=== PATIENT | female | born 1960 | race Caucasian/White ===

== ENCOUNTER → 2017-02-05 | Outpatient (CLI) | payer MEDICARE, BC ==
--- NOTE | 2017-02-08 07:23 | MM ---
Reason for exam: screening (asymptomatic). History: Patient is postmenopausal. Family history of breast cancer in maternal grandmother. Physical Findings: A clinical breast exam by your physician is recommended on an annual basis and results should be correlated with mammographic findings. MG 3D Screening Mammo W/Cad Bilateral CC and MLO view(s) were taken. No prior studies available for comparison. The breast tissue is almost entirely fat. There is no discrete abnormality. ASSESSMENT: Negative, BI-RAD 1 RECOMMENDATION: Routine screening mammogram of both breasts in 1 year.
== END ==
LOC: RADMAMWWP 12:22
PROVIDERS: ATTEND Family Medicine
DX: Z12.31 Encounter for screening mammogram for malignant neoplasm of breast (principal)
CPT/HCPCS: 77063; G0202

== ENCOUNTER → 2017-02-12 | Outpatient (CLI) | payer MEDICARE, BC ==
--- NOTE | 2017-02-12 11:54 | XR ---
EXAMINATION TYPE: XR chest 2V DATE OF EXAM: 02/12/2017 11:37 AM COMPARISON: 07/16/2016 HISTORY: 56-year-old female with cough TECHNIQUE: Frontal and lateral views FINDINGS: The cardiomediastinal silhouette, aorta, and pulmonary vasculature are within normal limits. Lungs an d pleural spaces are clear. IMPRESSION: No acute cardiopulmonary process.
== END ==
LOC: RADXRMAIN 11:16
PROVIDERS: ATTEND Family Medicine
DX: R05 Cough (principal); R06.2 Wheezing
CPT/HCPCS: 71020

== ENCOUNTER → 2017-03-11 | Outpatient (CLI) | payer MEDICARE, BC ==
[2017-03-11 10:38] LABS: ALT 33 U/L (9-52); AST 21 U/L (14-36); Alkaline Phosphatase 69 U/L (38-126); Anion Gap 10 mmol/L; Blood Urea Nitrogen 18 mg/dL (7-17); Calcium 9.3 mg/dL (8.4-10.2); Carbon Dioxide 27 mmol/L (22-30); Chloride 107 mmol/L (98-107); Cholesterol 103 mg/dL (<200); Glucose 151 mg/dL (74-99); HDL Cholesterol 29 mg/dL (40-60); Non-African American GFR(MDRD) >60 (>60 ml/min/1.73 sqM); Potassium 4.4 mmol/L (3.5-5.1); Sodium 144 mmol/L (137-145); Total Bilirubin 0.5 mg/dL (0.2-1.3); Total Protein 6.3 g/dL (6.3-8.2); Triglycerides 239 mg/dL (<150)
== END ==
LOC: LABWHC1 09:20
PROVIDERS: ATTEND Internal Medicine Interventional Cardiology
DX: E78.2 Mixed hyperlipidemia (principal)
CPT/HCPCS: 36415; 80053; 80061

== ENCOUNTER 2017-04-02 10:46 | Day surgery (SDC) | payer MEDICARE, BC ==
[2017-03-29 16:32] VITALS: BMI 40.1
[~2017-04-02 10:46] MED LIST: ALPRAZolam 0.25 MG TAB PO PRN; ASPIRIN 325 MG TAB PO ONE; SODIUM CHLORIDE 0.9% 1,000 ML in EMPTY BAG 1 BAG IV ONE
[2017-04-02 11:36] VITALS: TEMP 98.2
[2017-04-02 11:39] LABS: Glucose,Whole Blood 164 mg/dL (75-99)
[2017-04-02 11:55] LABS: Basophils % (A) 1 %; CH 30.2; Eosinophils # (A) 0.2 k/uL (0-0.7); Eosinophils % (A) 3 %; HCT 36.6 % (34.0-46.0); HDW 2.89; HGB 12.4 gm/dL (11.4-16.0); Luc # (Auto) 0.12; Luc % (Auto) 2; Lymphocytes # (A) 2.1 k/uL (1.0-4.8); Lymphocytes % (A) 36 %; MCH 30.1 pg (25.0-35.0); MCHC 33.9 g/dL (31.0-37.0); Mean Platelet Volume 7.6; Monocytes # (A) 0.2 k/uL (0-1.0); Monocytes % (A) 4 %; Neutrophils # (A) 3.2 k/uL (1.3-7.7); Neutrophils % (A) 55 %; RBC 4.11 m/uL (3.80-5.40); RDW 13.4 % (11.5-15.5); WBC 5.8 k/uL (3.8-10.6); WBC (Perox) 5.86
[2017-04-02] MEDS ORDERED: LIDOCAINE 2% INJ 20 MG/ML (20 ML MDV) ONE (12:07)
[2017-04-02] MEDS ORDERED: fentaNYL (PF) 50 MCG/ML 2 ML AMP ONE (12:08)
[2017-04-02] MEDS ORDERED: diphenhydrAMINE 50 MG/ML 1 ML VIAL ONE (12:08)
[2017-04-02] MEDS ORDERED: VERAPAMIL 2.5 MG/ML 2 ML AMP ONE (12:08)
[2017-04-02] MEDS ORDERED: SODIUM CHLORIDE 0.9% 1,000 ML IV ONE (12:31)
[2017-04-02] MEDS ORDERED: diphenhydrAMINE 50 MG/ML 1 ML VIAL IVP ONE (12:31)
[2017-04-02] MEDS ORDERED: fentaNYL (PF) 50 MCG/ML 2 ML AMP IV ONE (12:31)
[2017-04-02] MEDS ORDERED: HEPARIN SODIUM 1,000 UNIT/ML VIAL ONE (12:32)
[2017-04-02] MEDS ORDERED: LIDOCAINE 2% INJ 20 MG/ML SQ ONE (12:32)
[2017-04-02] MEDS ORDERED: VERAPAMIL SYRINGE (5 MG/10 ML) INTRAARTER ONE (12:36)
[2017-04-02] MEDS ORDERED: IOHEXOL 350 MG/ML 100 ML BOTTLE INJ ONE (13:13)
[2017-04-02] MEDS ORDERED: RX INFO: IV CONTRAST WAS GIVEN 1 EACH MISC MISCELLANE PRN (13:22)
[2017-04-02] MEDS ORDERED: NITROGLYCERIN SL TABS 0.4 MG TAB SUBLINGUAL PRN (13:23)
[2017-04-02] MEDS ORDERED: SODIUM CHLORIDE 0.9% 1,000 ML IV SCH (13:30)
[2017-04-02] MEDS ORDERED: ACETAMINOPHEN WITH CODEINE PO SCH (13:30)
[2017-04-02] MEDS ORDERED: Acetaminophen-Codeine 300-30mg TAB PO STA (15:04)
[2017-04-02] MEDS ORDERED: amLODIPine 5 MG TAB PO STA (15:04)
[2017-04-02 18:39] LABS: Glucose,Whole Blood 140 mg/dL (75-99)
[2017-04-02 18:55] VITALS: PULSE 84; RESP 20
[2017-04-02 19:32] VITALS: BP 138/67
[2017-04-02] MEDS ORDERED: LISINOPRIL-HCTZ 20-25 MG 1 EACH TAB PO SCH (21:00)
[2017-04-02] MEDS ORDERED: INSULIN GLARGINE 100 UNIT/ML 10 ML VIAL SQ SCH (21:00)
[2017-04-02] MEDS ORDERED: ATORVASTATIN 40 MG TAB PO SCH (21:00)
--- NOTE | 2017-04-03 06:51 | CC ---
DATE OF SERVICE: Mrs. Xie 56-year-old female with known history of coronary artery disease, status post stenting done on the LAD, who presented with symptoms of chest discomfort and dyspnea on exertion reminding her of the symptoms she had in the past. In view of that, recommendation was made regarding cardiac catheterization. The procedure as well as the risks and complications were discussed with the patient who is in full understanding and agreement. PROCEDURE: Patient was brought to the [facility] in fasting semisedated state after receiving fentanyl and Benadryl and achieving moderate conscious sedated state. Using Xylocaine anesthesia and Seldinger technique, a 6 Pashto sheath was introduced in left radial artery. Selective right and left coronary angiography was performed using a 4 Bend 5 Pashto right and left Shu catheter, multiple views of the coronary artery including hemiaxial views were obtained. Following that, a 5 Pashto tight pigtail catheter was introduced into the left ventricle and a 30 degree [place] view of the left ventricle was obtained. Following that, catheter and sheaths were removed. Hemostasis was obtained with deployment of TR band. There were no immediate complications. Patient is returned to her room in stable condition. Of note, the patient received 5000 units of intravenous heparin as well as intra-arterial verapamil. The duration of the procedure was 33 minutes. FINDINGS: LEFT MAIN: This is a short-sized vessel bifurcating into the left circumflex and left anterior descending artery. The left main coronary artery is without any obstructive coronary artery disease. LEFT ANTERIOR DESCENDING ARTERY: This is a large-size vessel reaching toward the apex segment, has stented segment in the mid artery of a long distance. The left anterior descending artery and the stented segment has about a 20% to 30% restenosis without any evidence of high-grade stenosis. The rest of the vessel has no high-grade stenosis. LEFT CIRCUMFLEX: This is a nondominant vessel, large in caliber, giving rise to 2 large obtuse marginal branches. The first one is very proximal left circumflex as well as its branches has no evidence of obstructive" coronary artery disease. RIGHT CORONARY ARTERY: This is a large dominant vessel, bifurcating distally into PDA and posterolateral segment and branches. The mid right coronary artery has a 20% to 30% plaque. The rest of the vessel has no high-grade stenosis. LEFT VENTRICULOGRAM: . The left ventriculogram was performed in 30-degree ASHFORD view and revealed normal left ventricle size and systolic function. Ejection fraction 60%. There was no significant mitral regurgitation. HEMODYNAMICS: There was no gradient across the aortic valve. The left ventricular end-diastolic pressure was 14 mmHg. CONCLUSION: 1. Mild in-stent restenosis involving the stented left anterior descending. 2. Mild disease in the mid right coronary artery. 3. Normal left ventricular size and systolic function. RECOMMENDATIONS: In view of findings and anatomy, I recommend continue medical therapy with a aggressive risk modifications being initiated. Those findings and recommendations were discussed with the patient and her family and in full understanding and agreement.
--- NOTE | 2017-04-03 06:53 | LTR ---
April 02, 2017 RE: Shelby Xie Dear Dr. Donnelly: I had the pleasure of performing cardiac catheterization on Mrs. Xie at [facility] on the march and a full copy of procedure note will be forwarded to you. In brief, she was found to have mild in-stent stenosis with mild disease in the right coronary artery and no significant progression of disease. Based on those findings, I recommend to continue on medical therapy with the aggressive risk modifications being initiated. Thank you again for allowing me to participate in her care. Please feel free to call for any questions. Sincerely, PJ BENEDICT MD
[2017-04-03] MEDS ORDERED: ISOSORBIDE MONONITRATE ER 15 MG TAB PO SCH (09:00)
[2017-04-03] MEDS ORDERED: CLOPIDOGREL 75 MG TAB PO SCH (09:00)
[2017-04-03] MEDS ORDERED: ASPIRIN 325 MG TAB PO SCH (09:00)
[2017-04-03] MEDS ORDERED: ATENOLOL 50 MG TAB PO SCH (09:00)
[2017-04-03] MEDS ORDERED: amLODIPine 5 MG TAB PO SCH (12:00)
== END 2017-04-02 19:30 | disposition home or self-care (01) ==
LOC: CATHCVL 10:46
PROVIDERS: ATTEND Internal Medicine Interventional Cardiology
DX: T82.855A Stenosis of coronary artery stent, initial encounter (principal); I25.110 Atherosclerotic heart disease of native coronary artery with unstable angina pectoris; E78.2 Mixed hyperlipidemia; I10 Essential (primary) hypertension; R00.2 Palpitations; E11.9 Type 2 diabetes mellitus without complications; E78.00 Pure hypercholesterolemia, unspecified; Z98.84 Bariatric surgery status; E66.9 Obesity, unspecified; Z68.41 Body mass index [BMI] 40.0-44.9, adult; Z79.84 Long term (current) use of oral hypoglycemic drugs; Z79.02 Long term (current) use of antithrombotics/antiplatelets; Z79.82 Long term (current) use of aspirin; Z79.4 Long term (current) use of insulin; Z79.899 Other long term (current) drug therapy; Z88.1 Allergy status to other antibiotic agents; Z88.0 Allergy status to penicillin; Z91.09 Other allergy status, other than to drugs and biological substances
CPT/HCPCS: 93458; 85025; 99152; 99153; C1894; C1769 ×2; J2001; J1200; Q9967; J3010; J1644

== ENCOUNTER → 2017-07-30 | Outpatient (CLI) | payer MEDICARE, BC ==
[2017-07-30 10:47] LABS: ALT 30 U/L (9-52); AST 17 U/L (14-36); Alkaline Phosphatase 69 U/L (38-126); Anion Gap 11 mmol/L; Blood Urea Nitrogen 16 mg/dL (7-17); Calcium 9.5 mg/dL (8.4-10.2); Carbon Dioxide 25 mmol/L (22-30); Chloride 107 mmol/L (98-107); Cholesterol 149 mg/dL (<200); Glucose 151 mg/dL (74-99); HDL Cholesterol 41 mg/dL (40-60); Non-African American GFR(MDRD) >60 (>60 ml/min/1.73 sqM); Potassium 4.5 mmol/L (3.5-5.1); Sodium 143 mmol/L (137-145); Total Bilirubin 0.4 mg/dL (0.2-1.3); Total Protein 6.3 g/dL (6.3-8.2)
== END | disposition home or self-care (01) ==
LOC: LABWHC1 09:43
PROVIDERS: ATTEND Internal Medicine Interventional Cardiology
DX: E78.2 Mixed hyperlipidemia (principal)
CPT/HCPCS: 36415; 80053; 80061

== ENCOUNTER → 2018-02-12 | Outpatient (CLI) | payer MEDICARE, BC ==
[2018-02-12 10:51] LABS: ALT 30 U/L (9-52); AST 20 U/L (14-36); Cholesterol 126 mg/dL (<200); HDL Cholesterol 38 mg/dL (40-60); LDL Cholesterol,Calculated 54 mg/dL (0-99); Triglycerides 168 mg/dL (<150)
== END | disposition home or self-care (01) ==
LOC: LABWHC1 09:22
PROVIDERS: ATTEND Internal Medicine Interventional Cardiology
DX: E78.2 Mixed hyperlipidemia (principal)
CPT/HCPCS: 36415; 80061; 84450; 84460

== ENCOUNTER → 2018-09-23 | Outpatient (CLI) | payer MEDICARE, BC ==
[2018-09-23 16:18] LABS: Albumin 4.2 g/dL (3.80-4.90); Albumin/Globulin Ratio 2.8 (1.20-2.10); Anion Gap 7.9 mmol/L (4.00-12.00); Calcium 9.6 mg/dL (8.7-10.3); Carbon Dioxide 29.1 mmol/L (21.6-31.8); Globulin 1.5 g/dL (2.1-3.7); LDL Cholesterol,Calculated 61.2 mg/dL (0.0-131.0); Potassium 4.5 mmol/L (3.5-5.5); Total Bilirubin 0.4 mg/dL (0.3-1.2); Total Protein 5.7 g/dL (6.2-8.2); VLDL Calculation 33.8 mg/dL (5.00-40.00)
== END | disposition home or self-care (01) ==
LOC: LABWHC1 07:54
PROVIDERS: ATTEND Internal Medicine Interventional Cardiology
DX: E78.2 Mixed hyperlipidemia (principal)
CPT/HCPCS: 36415; 80053; 80061

== ENCOUNTER → 2019-01-07 | Outpatient (CLI) | payer MEDICARE, BC ==
[2019-01-07 16:26] VITALS: BP 122/72; PULSE 65; TEMP 97.8; BMI 30.1
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
== END | disposition home or self-care (01) ==
LOC: BARWHC3 15:17
PROVIDERS: ATTEND Surgery Plastic and Reconstructive Surgery
DX: M79.3 Panniculitis, unspecified (principal); L98.498 Non-pressure chronic ulcer of skin of other sites with other specified severity; Z98.84 Bariatric surgery status; Z95.5 Presence of coronary angioplasty implant and graft; Z98.890 Other specified postprocedural states; Z96.612 Presence of left artificial shoulder joint; Z87.891 Personal history of nicotine dependence
CPT/HCPCS: 99211

== ENCOUNTER → 2019-02-02 | Outpatient (CLI) | payer MEDICARE, BC ==
[2019-02-02 10:13] LABS: Basophils % (A) 0 %; Eosinophils # (A) 0.2 k/uL (0-0.7); Eosinophils % (A) 3 %; HCT 35.8 % (34.0-46.0); HGB 11.7 gm/dL (11.4-16.0); Lymphocytes # (A) 2.8 k/uL (1.0-4.8); Lymphocytes % (A) 41 %; MCH 29.7 pg (25.0-35.0); MCHC 32.6 g/dL (31.0-37.0); MCV 91.2 fL (80.0-100.0); Mean Platelet Volume 7.7; Monocytes # (A) 0.3 k/uL (0-1.0); Monocytes % (A) 4 %; Neutrophils # (A) 3.5 k/uL (1.3-7.7); Neutrophils % (A) 51 %; Platelet Count 274 k/uL (150-450); RBC 3.92 m/uL (3.80-5.40); RDW 12.8 % (11.5-15.5); WBC 6.9 k/uL (3.8-10.6)
[2019-02-02 10:34] LABS: Albumin 4.2 g/dL (3.5-5.0); Potassium 4.7 mmol/L (3.5-5.1); Total Bilirubin 0.5 mg/dL (0.2-1.3); Total Protein 6.5 g/dL (6.3-8.2)
== END | disposition home or self-care (01) ==
LOC: LABPAT 09:03
PROVIDERS: ATTEND Surgery Plastic and Reconstructive Surgery
DX: Z01.818 Encounter for other preprocedural examination (principal); Z01.812 Encounter for preprocedural laboratory examination
CPT/HCPCS: 80053; 85025; 93005

== ENCOUNTER 2019-03-02 11:11 | Inpatient (IN) | payer MEDICARE, BC ==
--- NOTE | 2019-02-26 13:01 | P.PN ---
Progress Note - Text Progress Note Date: 02/26/19 I spoke to patient on the phone about risks with panniculectomy including large volume blood loss with current antiplatelet therapy. Patient had already obtained cardiac clearance and discontinued her Aspirin since 02/22/2019. Perioperative increased risks for myocardial infarction also described as she chose to discontinue her Aspirin. She wished to accept those risks and proceed with panniculectomy.
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
[~2019-03-02 11:11] MED LIST changes: -ALPRAZolam 0.25 MG TAB PO PRN; -ASPIRIN 325 MG TAB PO ONE; +DEXAMETHASONE SOD PHOSPHATE 10 MG/ML 1 ML VIAL IV ONE; +HEPARIN SODIUM,PORCINE 5,000 UNIT/ML 1 ML VIAL SQ ONE; +HYDROmorphone 0.5 MG/0.5 ML SYRINGE IVP PRN; +MIDAZOLAM 2 MG/2 ML VIAL IV PRN; +ONDANSETRON 4 MG/2 ML VIAL IVP ONE; +SCOPOLAMINE 1.5MG/72HR PATCH TRANSDERM ONE; -SODIUM CHLORIDE 0.9% 1,000 ML in EMPTY BAG 1 BAG IV ONE; +ceFAZolin IN SWFI 2 GM/20 ML SYRINGE IVP ONE
[2019-03-02 12:50] LABS: Glucose,Whole Blood 146 mg/dL (75-99)
[2019-03-02] MEDS: LACTATED RINGERS 1,000 ML IV SCH (12:54)
[2019-03-02] MEDS ORDERED: LIDOCAINE 1% 20 ML VIAL (10MG/ML) FOR IV START INTRADERMA ONE (12:54)
[2019-03-02] MEDS ORDERED: PROPOFOL 10 MG/ML 20 ML VIAL IV ONE (13:40)
[2019-03-02] MEDS ORDERED: ROCURONIUM BROMIDE 10 MG/ML 10 ML VIAL IV ONE (13:40)
[2019-03-02] MEDS ORDERED: fentaNYL (PF) 50 MCG/ML 2 ML AMP ONE (13:40)
[2019-03-02] MEDS ORDERED: LIDOCAINE 1% INJ 10MG/ML (20 ML MDV) ONE (13:40)
[2019-03-02] MEDS ORDERED: GLYCOPYRROLATE 0.2 MG/ML 2 ML VIAL ONE (13:40)
[2019-03-02] MEDS ORDERED: NEOSTIGMINE 1 MG/ML 10 ML VIAL ONE (13:40)
[2019-03-02] MEDS ORDERED: MIDAZOLAM 2 MG/2 ML VIAL ONE (13:40)
[2019-03-02] MEDS ORDERED: LACTATED RINGERS 1,000 ML IV ONE ×3 (15:00→18:58)
[2019-03-02] MEDS ORDERED: NALOXONE 0.4 MG/ML 1 ML VIAL IV PRN (18:10)
[2019-03-02] MEDS ORDERED: SIMETHICONE 40 MG/0.6 ML DROPS 2,000 MG/30 ML BOTTLE PO PRN (18:10)
--- NOTE | 2019-03-02 18:17 | P.OP ---
Date of Procedure: 03/02/19 Description of Procedure: SURGEON: ASIF LATHAM MD PREOPERATIVE DIAGNOSES: 1. Morbid obesity due to excess caloreis, highest BMI 46.9 to 29.5 2. Panniculitis. 3. Coronary artery disease 4. Ischemic cardiomyopathy 5. History of angina 6. Diabetes type 2, insulin dependent 7. Hyperlipidemia 8. Osteoarthritis of the lower back 9. Osteoarthritis of the knees 10. Osteoarthritis of the hips 11. Myocardial infarction 12. Hypertensive heart disease 13. Recurrent incarcerated incisional hernia unrelated to previous bariatric procedures 14. Massive weight loss, 117 pounds POSTOPERATIVE DIAGNOSES: 1. Morbid obesity due to excess caloreis, highest BMI 46.9 to 29.5 2. Panniculitis. 3. Coronary artery disease 4. Ischemic cardiomyopathy 5. History of angina 6. Diabetes type 2, insulin dependent 7. Hyperlipidemia 8. Osteoarthritis of the lower back 9. Osteoarthritis of the knees 10. Osteoarthritis of the hips 11. Myocardial infarction 12. Hypertensive heart disease 13. Recurrent incarcerated incisional hernia unrelated to previous bariatric proceduresm 9 x 7 cm 14. Massive weight loss, 117 pounds OPERATION: 1. Panniculectomy supraumbilical, 14.2 pounds. 2. Repair of recurrent incarcerated incisional 9 x 7 cm without mesh 3. Abdominal wall reconstruction with myocutaneous bilateral flap advancement. 4. Excision and removal of foreign body from the abdominal wall from previous mesh repair ANESTHESIA: General ESTIMATED BLOOD LOSS: 300 mL SPECIMENS REMOVED: Pannus 14.2 pounds. COMPLICATIONS: None. CONDITION: Stable. DRAINS: Two #19 Nic drains below abdominal flap extending through the pubis. OPERATIVE FINDINGS: 1. Recurrent lower midline incisional hernia with incarceration, 9 x 7 cm with excision of foreign body 2. Pannus of 14.2 pounds excised 3. Advancement flap of 15-cm x 26 cm length obtained. INDICATIONS: The patient is a 58-year-old female with a history of massive weight loss over 117 pounds over 1.5 years ago. Despite medical therapy with prescription powders such as Nystatin over 1 year, she has developed severe medical refractory panniculitis including chronic lower back pain. Her body mass index has been reduced from approximately 46.9 down to 29.5. She reports medically refractory panniculitis. Given her clinical symptoms, including massive weight loss, she elected for surgical intervention with a panniculectomy. Benefits and risks of the procedure including bleeding, infection, risk of flap failure were described at length. In formed consent was obtained. DESCRIPTION: In the preanesthesia care unit the patient was marked with an indelible marker. She had also been given heparin subcutaneously. The patient was brought into the operating room and laid in supine position. After general induction, a Tejada catheter was placed. The abdomen was then prepped and draped in standard sterile fashion using ChloraPrep. The skin was prepped as far laterally to the back, inferiorly to the upper thighs and superiorly to above the bilateral breasts. A timeout protocol was confirmed with the surgical team regarding patient's na me, procedure to be performed, including preoperative medications. She had received Ancef 2 grams IV antibiotics. Once the time-out protocol was confirmed with the surgical team, the patient was re-marked with indelible marker whereby the midline of the xiphoid to the mons pubis was marked. The anterior/superior iliac spine along the bilateral hips was also marked. Approximately 8 cm above the pubis commissure a transverse incision was made for the inferior portion of the flap. Using a #10 blade, the incision was taken from the midline laterally to above the anterior/superior iliac spine, initially on the left side of the patient and then on the right side of the patient. Electro-Bovie cautery was used to control for hemostasis. The dissection was taken down to the level of the fascia. Landmarks used were the xiphoid process as well as the bilateral costal margins for the superior margin. Care was taken to avoid any creation of dog ears during the dissection. Once hemostasis was checked, a large ventral incisoinal hernia defect of 9 x 7 cm was identified. During this dissection, the umbilicus was truncated at its fascial insertion. Bilateral myocutaneous flaps were created after identfying the external obliques muscle overlapped after creating over 8+ cm overlap on the left and right side flap advancement. A myocutaneous flap of 15 x 26 cm using the rectus muscle was created. After the flaps were raised, the midline was re- marked again from the xiphoid to the pubis commissure. Fascial imbrication was proposed with for primary repair and to reinforce the bilateral myocutaneous flap advancement. Starting from the xiphoid process, the rectus muscle was overlapped in the bilateral myocutaneous flap advancement using multiple #2 Ethibonds. The ventral hernia defect was completely repaired and closed. Hemostasis was once again checked with electro-Bovie cautery and all defects were addressed. Attention was now brought to closure of the flap. Using stainless steel skin jose, the midline was once again marked of the upper flap as well as the pubic commissure. The patient was placed in a flexed position of approximately 30 degrees at the hips. The pannus was extended inferiorly to the feet. The upper flap was created once the excess skin was excised. Again care was taken to avoid any dog ears along the lateral aspect of the incisions. Once excised, the pannus weighed approximately 22.7 pounds. The upper and lower flaps were reapproximated at the midline and then laterally to the skin with skin jose. Once reapproximated, the skin was closed in layers using 0 Vicryl for the superficial fascial system followed by running 3-0 Monocryl for the deep dermis and finally 4-0 Monocryl in a running subcuticular fashion. Prior to skin closure, two round #19 Nic drains were placed underneath the flap and brought out just inferior to the incision along the pubis. Drain stitch using 2-0 nylon was placed. Once the incision was closed, bulb suction was attached. Hemostasis was checked. At the end of the procedure, the needle, sponge and instrument count was verified correct. The skin was cleansed with dilute hydrogen peroxide. Exofin tape and Optifoam dressings were placed. The patient was then transferred to a hospital bed in a beach chair position. An abdominal binder was placed and marked. The patient was taken to the postanesthesia care unit in stable condition, awake and extubated. Total time for procedure from skin to skin was 199 minutes. The intraoperative findings were discussed with her family who was pleased with the level of care.
[2019-03-02] MEDS ORDERED: NITROGLYCERIN SL TABS 0.4 MG TAB SUBLINGUAL PRN (18:18)
[2019-03-02 18:32] LABS: Glucose,Whole Blood 254 mg/dL (75-99)
[2019-03-02] MEDS ORDERED: INSULIN ASPART (NovoLOG) 100 UNIT/ML VIAL SQ ONE (18:44)
[2019-03-02] MEDS: HYDROmorphone 1 MG/ML 1 ML SYRINGE IVP PRN (20:56)
[2019-03-02] MEDS: LISINOPRIL-HCTZ 20-25 MG 1 EACH TAB PO SCH (20:56)
[2019-03-02] MEDS: METOPROLOL TARTRATE 50 MG TAB PO SCH (20:56)
[2019-03-02] MEDS: 0.9% NACL WITH KCL 20 MEQ/L 1,000 ML IV SCH (20:57)
[2019-03-02] MEDS: ATORVASTATIN 40 MG TAB PO SCH (20:57)
[2019-03-02] MEDS: ceFAZolin IN SWFI 2 GM/20 ML SYRINGE IVP SCH (20:57)
[2019-03-02 22:39] LABS: Hepatitis C IgG Antibody Non-Reactive (Non-Reactive)
[2019-03-02 23:09] VITALS: BMI 29.1
[2019-03-02 23:18] LABS: Glucose,Whole Blood 196 mg/dL (75-99)
[2019-03-02] MEDS: ONDANSETRON 4 MG/2 ML VIAL IVP SCH (23:20)
[2019-03-02] MEDS: INSULIN ASPART (NovoLOG) 100 UNIT/ML VIAL SQ SCH (23:21)
[2019-03-03] MEDS: HYDROmorphone 1 MG/ML 1 ML SYRINGE IVP PRN (02:29)
[2019-03-03] MEDS: 0.9% NACL WITH KCL 20 MEQ/L 1,000 ML IV SCH ×4 (04:25→21:46)
[2019-03-03] MEDS: ceFAZolin IN SWFI 2 GM/20 ML SYRINGE IVP SCH (04:28)
[2019-03-03 05:54] LABS: Glucose,Whole Blood 147 mg/dL (75-99)
[2019-03-03] MEDS: ONDANSETRON 4 MG/2 ML VIAL IVP SCH ×4 (06:18→23:52)
[2019-03-03] MEDS: INSULIN ASPART (NovoLOG) 100 UNIT/ML VIAL SQ SCH ×4 (06:18→21:44)
[2019-03-03] MEDS: LACTATED RINGERS 1,000 ML IV SCH (06:19)
[2019-03-03] MEDS: HYDROcodone/APAP 15 ML SOLUTION PO PRN ×3 (06:24→20:08)
[2019-03-03 07:32] VITALS: RESP 16
[2019-03-03 09:49] LABS: INR 0.9 (<1.2); Prothrombin Time 10.1 sec (9.0-12.0)
[2019-03-03 09:55] LABS: ALT 20 U/L (9-52); AST 16 U/L (14-36); Albumin 3.3 g/dL (3.5-5.0); Alkaline Phosphatase 57 U/L (38-126); Anion Gap 10 mmol/L; Blood Urea Nitrogen 16 mg/dL (7-17); Calcium 8.9 mg/dL (8.4-10.2); Carbon Dioxide 26 mmol/L (22-30); Chloride 105 mmol/L (98-107); Glucose 135 mg/dL (74-99); Phosphorus 4.3 mg/dL (2.5-4.5); Potassium 4.4 mmol/L (3.5-5.1); Sodium 141 mmol/L (137-145); Total Bilirubin 0.4 mg/dL (0.2-1.3); Total Protein 5.3 g/dL (6.3-8.2)
[2019-03-03 10:24] LABS: Basophils % (A) 0 %; Eosinophils # (A) 0.1 k/uL (0-0.7); Eosinophils % (A) 1 %; HCT 32.3 % (34.0-46.0); HGB 10.8 gm/dL (11.4-16.0); Lymphocytes # (A) 2.5 k/uL (1.0-4.8); Lymphocytes % (A) 24 %; MCH 30.5 pg (25.0-35.0); MCHC 33.5 g/dL (31.0-37.0); MCV 91.2 fL (80.0-100.0); Mean Platelet Volume 7.8; Monocytes # (A) 0.5 k/uL (0-1.0); Monocytes % (A) 5 %; Neutrophils # (A) 7.3 k/uL (1.3-7.7); Neutrophils % (A) 69 %; Platelet Count 356 k/uL (150-450); RBC 3.55 m/uL (3.80-5.40); RDW 12.6 % (11.5-15.5); WBC 10.6 k/uL (3.8-10.6)
[2019-03-03] MEDS: LISINOPRIL-HCTZ 20-25 MG 1 EACH TAB PO SCH ×2 (11:21→20:08)
[2019-03-03] MEDS: METOPROLOL TARTRATE 50 MG TAB PO SCH ×2 (11:21→20:08)
[2019-03-03] MEDS: ENOXAPARIN 40 MG/0.4 ML SYRINGE SQ SCH (11:22)
[2019-03-03] MEDS: ASPIRIN 81 MG PO SCH (11:26)
[2019-03-03] MEDS: BENZOCAINE/MENTHOL LOZENG 1 EACH LOZENGE MUCOUS MEM PRN ×2 (11:28→14:58)
[2019-03-03 11:38] LABS: Glucose,Whole Blood 150 mg/dL (75-99)
[2019-03-03] MEDS ORDERED: MULTIVITAMINS, THERA 1 EACH TAB PO SCH (12:00)
--- NOTE | 2019-03-03 12:46 | P.PN ---
Subjective Progress Note Date: 03/03/19 CHIEF COMPLAINT: Panniculitis HISTORY OF PRESENT ILLNESS: 58-year-old female who underwent panniculectomy yesterday. Patient seen and examined the bedside. Patient states her pain is tolerable. Urinary catheter was discontinued at 1000. Patient is due to void. Patient has been ambulating in the hallway. She complains of a sore throat. PHYSICAL EXAM: VITAL SIGNS: Reviewed. GENERAL: Well-developed in no acute distress. HEENT: No sclera icterus. Extraocular movements grossly intact. Moist buccal mucosa. Head is atraumatic, normocephalic. ABDOMEN: Soft. Nondistended. Nontender. Abdominal binder intact. EDUARDO drains 2 with sanguinous drainage. NEUROLOGIC: Alert and oriented. Cranial nerves II through XII grossly intact. ASSESSMENT: 1. Status post panniculectomy PLAN: 1. Patient due to void. Notify provider if patient has not urinated since 6 hours of urinary catheter be discontinued 2. Strict I's and O's 3. Pain control 4. Activity as tolerated 5. Patient encouraged to use incentive spirometer hourly 6. Cepacol lozenges ordered. Nurse practitioner note has been reviewed by physician. Signing provider agrees with the documented findings, assessment, and plan of care. Objective - Vital Signs Vital signs: Vital Signs Temp 98.6 F 03/03/19 07:00 Pulse 67 03/03/19 07:00 Resp 16 03/03/19 07:00 BP 121/74 03/03/19 07:00 Pulse Ox 96 03/03/19 07:41 Intake & Output 03/02/19 03/03/19 03/03/19 18:59 06:59 18:59 Intake Total 2975 1200 Output Total 528 400 7293 Balance 2415 415 -1010 Intake: IV 2975 Intake, IV Titration 1200 Amount 0.9% NaCl with KCl 20 Meq 1200 /l 1,000 ml @ 150 mls/hr IV .Q6H40M [facility] Rx#: [id number] Output: Drainage 60 110 Left Lower Abdomen 30 60 Right Lower Abdomen 30 50 Urine 260 725 900 Uretheral ([place]) 900 Estimated Blood Loss 300 Other: Voiding Method Indwelling Catheter - Labs CBC & Chem 7: 03/03/19 08:43 03/03/19 08:43 Labs: Abnormal Lab Results - Last 24 Hours (Table) 04/08/19 04/08/19 04/08/19 Range/Units 12:48 18:29 23:16 RBC (3.80-5.40) m/uL Hgb (11.4-16.0) gm/dL Hct (34.0-46.0) % Glucose (74-99) mg/dL POC Glucose (mg/dL) 146 H 254 H 196 H (75-99) mg/dL Total Protein (6.3-8.2) g/dL Albumin (3.5-5.0) g/dL 03/03/19 03/03/19 03/03/19 Range/Units 05:52 08:43 08:43 RBC 3.55 L (3.80-5.40) m/uL Hgb 10.8 L (11.4-16.0) gm/dL Hct 32.3 L (34.0-46.0) % Glucose 135 H (74-99) mg/dL POC Glucose (mg/dL) 147 H (75-99) mg/dL Total Protein 5.3 L (6.3-8.2) g/dL Albumin 3.3 L (3.5-5.0) g/dL 03/03/19 Range/Units 11:37 RBC (3.80-5.40) m/uL Hgb (11.4-16.0) gm/dL Hct (34.0-46.0) % Glucose (74-99) mg/dL POC Glucose (mg/dL) 150 H (75-99) mg/dL Total Protein (6.3-8.2) g/dL Albumin (3.5-5.0) g/dL Assessment and Plan (1) Panniculitis Current Visit: Yes Status: Acute Code(s): M79.3 - PANNICULITIS, UNSPECIFIED SNOMED Code(s): 64063623 (2) Obesity Current Visit: No Status: Acute Code(s): E66.9 - OBESITY, UNSPECIFIED SNOMED Code(s): 695286308
[2019-03-03 16:31] LABS: Folate, Serum 14.5 ng/mL; Iron Saturation 7.19 (12.00-45.00)
[2019-03-03 16:57] LABS: Glucose,Whole Blood 147 mg/dL (75-99)
[2019-03-03 17:12] LABS: Parathyroid Hormone Intact 65.5 pg/mL (14.0-72.0)
[2019-03-03 19:09] LABS: Hemoglobin A1C 6.5 % (4.0-6.0)
[2019-03-03] MEDS: ATORVASTATIN 40 MG TAB PO SCH (20:08)
[2019-03-03] MEDS ORDERED: LEVOFLOXACIN 500MG-D5W PMX 500 MG in DEXTROSE/WATER 1 100ML.BAG IVPB SCH (21:00)
[2019-03-03 21:35] LABS: Glucose,Whole Blood 189 mg/dL (75-99)
[2019-03-03] MEDS: DOCUSATE 100 MG CAP PO SCH (21:44)
[2019-03-04] MEDS: HYDROcodone/APAP 7.5-325MG 1 EACH TAB PO PRN ×2 (01:44→09:35)
[2019-03-04] MEDS: ONDANSETRON 4 MG/2 ML VIAL IVP SCH (06:01)
[2019-03-04] MEDS: LACTATED RINGERS 1,000 ML IV SCH (06:02)
[2019-03-04 06:55] LABS: Glucose,Whole Blood 123 mg/dL (75-99)
[2019-03-04] MEDS ORDERED: BISACODYL 5 MG TABLET.DR PO PRN (08:00)
--- NOTE | 2019-03-04 08:31 | P.PN ---
Progress Note - Text Progress Note Date: 03/04/19 Patient doing well. Reports pre-existing sinusitis not disclosed to the surgical team. Started on Levaquin for pre-existing sinusitis. Anticipated discharge tomorrow.
[2019-03-04 09:11] VITALS: BP 118/78; PULSE 76; TEMP 98
[2019-03-04] MEDS: ASPIRIN 81 MG PO SCH (09:31)
[2019-03-04] MEDS: ENOXAPARIN 40 MG/0.4 ML SYRINGE SQ SCH (09:31)
[2019-03-04] MEDS: LISINOPRIL-HCTZ 20-25 MG 1 EACH TAB PO SCH (09:31)
[2019-03-04] MEDS: METOPROLOL TARTRATE 50 MG TAB PO SCH (09:31)
[2019-03-04] MEDS: DOCUSATE 100 MG CAP PO SCH (09:31)
[2019-03-04] MEDS: INSULIN ASPART (NovoLOG) 100 UNIT/ML VIAL SQ SCH (09:37)
[2019-03-04 11:59] LABS: Glucose,Whole Blood 167 mg/dL (75-99)
--- NOTE | 2019-03-04 12:03 | P.DS ---
Providers Date of admission: 03/02/19 18:35 Expected date of discharge: 03/04/19 Attending physician: Anisha Ruiz Primary care physician: Manish Donnelly - Discharge Diagnosis(es) (1) Recurrent incisional hernia with incarceration Status: Acute (2) S/P panniculectomy Status: Acute (3) S/P repair of ventral hernia Status: Acute (4) Ischemic cardiomyopathy Status: Acute (5) Diabetes mellitus type 2 in nonobese Status: Acute (6) Presence of stent in LAD coronary artery Status: Acute Hospital Course: POSTOPERATIVE DIAGNOSES: 1. Morbid obesity due to excess caloreis, highest BMI 46.9 to 29.5 2. Panniculitis. 3. Coronary artery disease 4. Ischemic cardiomyopathy 5. History of angina 6. Diabetes type 2, insulin dependent 7. Hyperlipidemia 8. Osteoarthritis of the lower back 9. Osteoarthritis of the knees 10. Osteoarthritis of the hips 11. Myocardial infarction 12. Hypertensive heart disease 13. Recurrent incarcerated incisional hernia unrelated to previous bariatric proceduresm 9 x 7 cm 14. Massive weight loss, 117 pounds COURSE: The patient is a 58-year-old female with a history of massive weight loss over 117 pounds over 1.5 years ago. Despite medical therapy with prescription powders such as Nystatin over 1 year, she has developed severe medical refractory panniculitis including chronic lower back pain. Her body mass index has been reduced from approximately 46.9 down to 29.5. She reports medically refractory panniculitis. Given her clinical symptoms, including massive weight loss, she elected for surgical intervention with a panniculectomy. Post-procedure, moderate postop pain was addressed and managed during her hospitalization. She was tolerating diet. Wound care instructions were described. Follow up in the bariatric center in 2 days were described. Procedures: OPERATION: 1. Panniculectomy supraumbilical, 14.2 pounds. 2. Repair of recurrent incarcerated incisional 9 x 7 cm without mesh 3. Abdominal wall reconstruction with myocutaneous bilateral flap advancement. 4. Excision and removal of foreign body from the abdominal wall from previous mesh repair ANESTHESIA: General ESTIMATED BLOOD LOSS: 300 mL SPECIMENS REMOVED: Pannus 14.2 pounds. COMPLICATIONS: None. CONDITION: Stable. DRAINS: Two #19 Nic drains below abdominal flap extending through the pubis. OPERATIVE FINDINGS: 1. Recurrent lower midline incisional hernia with incarceration, 9 x 7 cm with excision of foreign body 2. Pannus of 14.2 pounds excised 3. Advancement flap of 15-cm x 26 cm length obtained. Patient Condition at Discharge: Stable Plan - Discharge Summary Discharge Rx Participant: Yes New Discharge Prescriptions: New Docusate [Colace] 100 mg PO DAILY #20 capsule HYDROcodone/APAP 7.5-325MG [[place] 7.5-325] 1 tab PO Q4H PRN 3 Days #18 tab PRN Reason: Pain Continue Lisinopril-Hctz 20-25 mg [Zestoretic 20-25] 1 tab PO BID Nitroglycerin Sl Tabs [Nitrostat] 0.4 mg SUBLINGUAL Q5M PRN #25 tab PRN Reason: Chest Pain Aspirin 325 mg PO DAILY #30 tab Atorvastatin [Lipitor] 40 mg PO HS Metoprolol Tartrate [Lopressor] 50 mg PO BID Multivitamins, Thera [Multivitamin (formulary)] 1 tab PO DAILY Insulin Aspart [NovoLOG] See Protocol SQ TID-W/MEALS Discontinued Turmeric Root Extract [Turmeric] 500 mg PO DAILY #0 Discharge Medication List Lisinopril-Hctz 20-25 mg [Zestoretic 20-25] 1 tab PO BID 01/30/15 [History] Aspirin 325 mg PO DAILY #30 tab 01/18/16 [Rx] Nitroglycerin Sl Tabs [Nitrostat] 0.4 mg SUBLINGUAL Q5M PRN #25 tab 01/18/16 [Rx] Atorvastatin [Lipitor] 40 mg PO HS 07/16/16 [History] Metoprolol Tartrate [Lopressor] 50 mg PO BID 02/17/19 [History] Multivitamins, Thera [Multivitamin (formulary)] 1 tab PO DAILY 02/17/19 [History] Insulin Aspart [NovoLOG] See Protocol SQ TID-W/MEALS 03/02/19 [History] Docusate [Colace] 100 mg PO DAILY #20 capsule 03/04/19 [Rx] HYDROcodone/APAP 7.5-325MG [[place] 7.5-325] 1 tab PO Q4H PRN 3 Days #18 tab 03/04/19 [Rx] Follow up Appointment(s)/Referral(s): Bariatric Center,. [NON-STAFF] - 03/06/19 10:00 am Patient Instructions/Handouts: Iam-[place]zon Drain Care (DC), Abdominal Binder (DC), Panniculectomy (DC) Activity/Diet/Wound Care/Special Instructions: No lifting over 4 pounds in 4 weeks. No bathtub soaks. No shower. No stretching or twisting. Sleep in a recliner. DO NOT REMOVE DRESSINGS. DO NOT REMOVE BINDER. Keep record of EDUARDO outputs daily. DO NOT START TUMERIC Discharge Disposition: HOME SELF-CARE
[2019-03-04 12:46] LABS: Zinc, Serum 56 ug/dL (60-130)
[2019-03-04] MEDS ORDERED: LEVOFLOXACIN 500 MG TAB PO SCH (21:00)
[2019-03-05 15:32] LABS: Vit B1(Thiamine) 90 ug/L (38-122)
[2019-03-05 19:56] LABS: Selenium 100 mcg/L (63-160)
== END 2019-03-04 14:33 | disposition home or self-care (01) | DRG 580 ==
LOC: OR 11:11 → 4SSUR 17:45 → OR 18:35 → 4SSUR 18:35
PROVIDERS: ADMIT Surgery Plastic and Reconstructive Surgery; ATTEND Surgery Plastic and Reconstructive Surgery
PROC: 0WQF0ZZ Repair Abdominal Wall, Open Approach (ICD-10-PCS; 2019-03-02)
PROC: 0WPF0JZ Removal of Synthetic Substitute from Abdominal Wall, Open Approach (ICD-10-PCS; 2019-03-02)
PROC: 0HB7XZZ Excision of Abdomen Skin, External Approach (ICD-10-PCS; principal; 2019-03-02 12:45)
PROC: 0WQFXZZ Repair Abdominal Wall, External Approach (ICD-10-PCS; 2019-03-02 12:45)
DX: M79.3 Panniculitis, unspecified (principal); K43.0 Incisional hernia with obstruction, without gangrene; E66.01 Morbid (severe) obesity due to excess calories; I11.9 Hypertensive heart disease without heart failure; E11.9 Type 2 diabetes mellitus without complications; Z68.29 Body mass index [BMI] 29.0-29.9, adult; E78.5 Hyperlipidemia, unspecified; I25.10 Atherosclerotic heart disease of native coronary artery without angina pectoris; I25.2 Old myocardial infarction; I25.5 Ischemic cardiomyopathy; M16.0 Bilateral primary osteoarthritis of hip; M17.0 Bilateral primary osteoarthritis of knee; M47.9 Spondylosis, unspecified; J32.9 Chronic sinusitis, unspecified; Z79.4 Long term (current) use of insulin; Z79.82 Long term (current) use of aspirin; Z79.899 Other long term (current) drug therapy; Z98.84 Bariatric surgery status; Z96.612 Presence of left artificial shoulder joint; Z95.5 Presence of coronary angioplasty implant and graft; Z87.891 Personal history of nicotine dependence; Z88.0 Allergy status to penicillin; Z91.041 Radiographic dye allergy status; Z81.8 Family history of other mental and behavioral disorders; Z82.3 Family history of stroke; Z82.49 Family history of ischemic heart disease and other diseases of the circulatory system
CPT/HCPCS: 80053; 82525; 82607; 82728; 82746; 83036; 83540; 83550; 83970; 84100; 84255; 84425; 84443; 84630; 85025; 85610; 86701; 86704; 86803; 87340; 88304; 94760; 94762

== ENCOUNTER → 2019-03-06 | Outpatient (CLI) | payer MEDICARE, BC ==
[2019-03-06 10:22] VITALS: BP 122/73; PULSE 84; RESP 16; TEMP 98.3; BMI 28.0
--- NOTE | 2019-03-06 11:06 | P.PN ---
Subjective Progress Note Date: 03/06/19 DATE OF SERVICE: 03/06/2019 CHIEF COMPLAINT: Panniculitis HISTORY OF PRESENT ILLNESS: Shelby Xie is a 58-year-old female who is status post panniculectomy, 03/02/2019. She is status post panniculectomy now postoperative day 4. Skin removal of over 14 pounds removed along the skin. Pain well controlled. No nausea or vomiting. No fevers or chills. Blood sugars are under 110 daily. Today she comes in weighing 190 pounds from 204 pounds, 2 months ago. She has lost 14 pounds in 2 months. Her highest weight is 317 pounds. Lifetime weight loss is 113 pounds. Her body mass index is reduced from 46.9 to 28.1 lifetime. Total percent excess weight loss is 86%. PHYSICAL EXAM: VITAL SIGNS: 5 foot 9, 190 pounds. Body mass index is 28.1 Vital Signs Temp 98.3 F 03/06/19 10:18 Pulse 84 03/06/19 10:18 Resp 16 03/06/19 10:18 BP 122/73 03/06/19 10:18 Pulse Ox GENERAL: Well-developed male in no acute distress. ABDOMEN: No cellulitis or infection. EDUARDO tubing stripped and serosanguinous. Optifoam dressing placed along the EDUARDO sites. Skin cleansed with Cloraprep. HEENT: Hears conversational speech. Moist buccal mucosa. Extraocular movements were grossly intact. No nasal drainage. NECK: Supple without lymphadenopathy. CHEST: Unlabored respirations, equal bilateral excursions. CARDIOVASCULAR: Regular rate and rhythm. 2+ radial pulses. MUSCULOSKELETAL: No clubbing cyanosis or edema. NEURO: No focal or lateralizing signs. Cranial nerves II-12 grossly intact. PSYCH: Appropriate affect. Alert and oriented to person, place, and time. SKIN: Well perfused. Good skin turgor. ASSESSMENT: 1. Morbid obesity due to excess caloreis, highest BMI 46.9 2. Panniculitis. 3. Panniculectomy PLAN: 1. Drains continue for another week. 2. Follow up as outpatient 1 week for dressing changes. Objective - Vital Signs Vital signs: Vital Signs Temp 98.3 F 03/06/19 10:18 Pulse 84 03/06/19 10:18 Resp 16 03/06/19 10:18 BP 122/73 03/06/19 10:18 Pulse Ox Intake & Output 03/05/19 03/06/19 03/06/19 18:59 06:59 18:59 Weight 86.183 kg
== END | disposition home or self-care (01) ==
LOC: BARWHC3 09:59
PROVIDERS: ATTEND Surgery Plastic and Reconstructive Surgery
DX: M79.3 Panniculitis, unspecified (principal); E66.01 Morbid (severe) obesity due to excess calories; Z98.890 Other specified postprocedural states; Z68.42 Body mass index [BMI] 45.0-49.9, adult
CPT/HCPCS: 99212

== ENCOUNTER → 2019-03-18 | Outpatient (CLI) | payer MEDICARE, BC ==
[2019-03-18 15:49] VITALS: BP 104/68; PULSE 77; RESP 16; TEMP 98.6; BMI 27.0
--- NOTE | 2019-03-18 18:23 | P.PN ---
Subjective Progress Note Date: 03/18/19 DATE OF SERVICE: 03/18/2019 CHIEF COMPLAINT: Panniculitis HISTORY OF PRESENT ILLNESS: Shelby Xie is a 58-year-old female who is status post panniculectomy, 03/02/2019. She is 3 weeks out. Patient reports feeling well. Pain is controlled. She is taking pain medications. No fevers or chills. Today she comes in weighing 183 pounds from 190 pounds, 2 weeks ago. She has lost 7 pounds in 2 weeks. Her highest weight is 317 pounds. Lifetime weight loss is 134 pounds. Her body mass index is reduced from 46.9 to 27.0 lifetime. Total percent excess weight loss is 90%. PHYSICAL EXAM: VITAL SIGNS: 5 foot 9, 183 pounds. Body mass index is 27.0 Vital Signs Temp 98.6 F 03/18/19 15:46 Pulse 77 03/18/19 15:46 Resp 16 03/18/19 15:46 BP 104/68 03/18/19 15:46 Pulse Ox GENERAL: Well-developed male in no acute distress. ABDOMEN: Abdominal binder refitted snug over pubis. Minimal seroma. EDUARDO not present. Mild fluid seroma along the pubis. No cellulitis or infection. No drainage. HEENT: Hears conversational speech. Moist buccal mucosa. Extraocular movements were grossly intact. No nasal drainage. NECK: Supple without lymphadenopathy. CHEST: Unlabored respirations, equal bilateral excursions. CARDIOVASCULAR: Regular rate and rhythm. 2+ radial pulses. MUSCULOSKELETAL: No clubbing cyanosis or edema. NEURO: No focal or lateralizing signs. Cranial nerves II-12 grossly intact. PSYCH: Appropriate affect. Alert and oriented to person, place, and time. SKIN: Well perfused. Good skin turgor. ASSESSMENT: 1. Morbid obesity due to excess caloreis, highest BMI 46.9 2. Panniculitis. 3. Panniculectomy PLAN: 1. Recommend ultrasound with drainage of seroma in 1 week. 2. Follow up in one week. 3. New abdominal binder dispensed. Objective - Vital Signs Vital signs: Vital Signs Temp 98.6 F 03/18/19 15:46 Pulse 77 03/18/19 15:46 Resp 16 03/18/19 15:46 BP 104/68 03/18/19 15:46 Pulse Ox Intake & Output 03/17/19 03/18/19 03/18/19 18:59 06:59 18:59 Weight 83.007 kg
== END | disposition home or self-care (01) ==
LOC: BARWHC3 13:30
PROVIDERS: ATTEND Surgery Plastic and Reconstructive Surgery
DX: Z48.817 Encounter for surgical aftercare following surgery on the skin and subcutaneous tissue (principal); E66.01 Morbid (severe) obesity due to excess calories; M79.3 Panniculitis, unspecified; Z98.890 Other specified postprocedural states; Z68.42 Body mass index [BMI] 45.0-49.9, adult
CPT/HCPCS: 99212

== ENCOUNTER 2019-04-03 08:45 | Day surgery (SDC) | payer MEDICARE, BC ==
[2019-04-03 09:07] VITALS: TEMP 97.6
[2019-04-03 09:56] LABS: Glucose,Whole Blood 114 mg/dL (75-99)
[2019-04-03 09:59] VITALS: PULSE 54; RESP 14
[2019-04-03 10:20] VITALS: BP 123/60
--- NOTE | 2019-04-03 10:30 | US ---
ULTRASOUND GUIDED FNA ANTERIOR SUBCUTANEOUS ABDOMINAL SEROMA: CLINICAL HISTORY: Postoperative seroma subcutaneous tissues anterior abdominal wall FINDINGS: The procedure was explained to the patient. The risks, complications, benefits and alternatives were discussed and any questions were answered. Informed consent was obtained. Patient was placed supin e on the ultrasound table and prepped and draped in the usual sterile fashion. Utilizing a 18 gauge needle, approximately 3 cc of serous fluid was aspirated. Patient was stable throughout the procedure. All elements of maximal barrier technique were utilized. IMPRESSION: 1. Successful ultrasound guided FNA anterior abdominal wall subcutaneous seroma.
== END 2019-04-03 10:18 | disposition home or self-care (01) ==
LOC: RADPROMAIN 08:45
PROVIDERS: ATTEND Surgery Plastic and Reconstructive Surgery
DX: L76.34 Postprocedural seroma of skin and subcutaneous tissue following other procedure (principal)
CPT/HCPCS: 10005; 10160

== ENCOUNTER → 2019-08-28 | Outpatient (CLI) | payer MEDICARE, BC ==
[2019-08-28 17:45] LABS: Chol/HDL Ratio 2.9
== END | disposition home or self-care (01) ==
LOC: LABWHC1 08:07
PROVIDERS: ATTEND Internal Medicine Interventional Cardiology
DX: E78.2 Mixed hyperlipidemia (principal)
CPT/HCPCS: 36415; 80061; 84450; 84460

== ENCOUNTER 2022-09-26 12:20 | Inpatient (IN) | payer BC, MEDICARE ==
[2022-09-26 13:41] LABS: Appearance,Urine Clear (Clear); Bilirubin,Urine Negative (Negative); Blood,Urine Negative (Negative); Color,Urine Light Yellow; Glucose,Urine (UA) Negative (Negative); Ketones,Urine Negative (Negative); Leukocyte Esterase,Urine Negative (Negative); Nitrite,Urine Negative (Negative); PH, Urine 6.5 (5.0-8.0); Protein,Urine Negative (Negative); Specific Gravity,Urine 1.013 (1.001-1.035); Urobilinogen,Urine <2.0 mg/dL (<2.0)
[2022-09-26 13:41] LABS: Basophils # (A) 0.1 k/uL (0-0.2); Basophils % (A) 1 %; Eosinophils # (A) 0.1 k/uL (0-0.7); Eosinophils % (A) 1 %; HCT 28.2 % (34.0-46.0); HGB 9.8 gm/dL (11.4-16.0); Lymphocytes # (A) 1.8 k/uL (1.0-4.8); Lymphocytes % (A) 27 %; MCH 30.9 pg (25.0-35.0); MCHC 34.7 g/dL (31.0-37.0); MCV 89.1 fL (80.0-100.0); Mean Platelet Volume 8.3; Monocytes # (A) 0.2 k/uL (0-1.0); Monocytes % (A) 3 %; Neutrophils # (A) 4.5 k/uL (1.3-7.7); Neutrophils % (A) 68 %; Platelet Count 275 k/uL (150-450); RBC 3.17 m/uL (3.80-5.40); WBC 6.7 k/uL (3.8-10.6)
[2022-09-26 13:57] LABS: ALT 18 U/L (4-34); AST 18 U/L (14-36); African American GFR (CKD) >90 (>60 ml/min/1.73 sqM); Alkaline Phosphatase 61 U/L (38-126); Amylase 109 U/L (30-110); Anion Gap 10 mmol/L; Blood Urea Nitrogen 36 mg/dL (7-17); Carbon Dioxide 24 mmol/L (22-30); Chloride 104 mmol/L (98-107); Glucose 168 mg/dL (74-99); Lipase 130 U/L (23-300); Non-African American GFR(CKD) >90 (>60 ml/min/1.73 sqM); Potassium 4.6 mmol/L (3.5-5.1); Sodium 138 mmol/L (137-145); Total Bilirubin 0.2 mg/dL (0.2-1.3); Total Protein 5.9 g/dL (6.3-8.2)
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
[2022-09-26] MEDS ORDERED: NALOXONE 0.4 MG/ML 1 ML VIAL IV PRN (16:18)
[2022-09-26] MEDS ORDERED: SODIUM CHLORIDE 0.9% 1,000 ML IV ONE (16:28)
[2022-09-26] MEDS: SODIUM CHLORIDE 0.9% 1,000 ML IV SCH (17:19)
[2022-09-26] MEDS: METOPROLOL TARTRATE 25 MG TAB PO SCH (17:59)
[2022-09-26] MEDS: ATORVASTATIN 40 MG TAB PO SCH (17:59)
[2022-09-26] MEDS: ACETAMINOPHEN TAB 500 MG TAB PO PRN (20:07)
[2022-09-26] MEDS: MELATONIN 5 MG TABLET PO SCH (21:06)
[2022-09-27] MEDS: SODIUM CHLORIDE 0.9% 1,000 ML IV SCH ×2 (06:52→19:42)
[2022-09-27] MEDS: METOPROLOL TARTRATE 25 MG TAB PO SCH ×2 (08:21→16:56)
[2022-09-27] MEDS: hydroCHLOROthiazide 12.5 MG CAP PO SCH (08:22)
[2022-09-27] MEDS: VALSARTAN 160 MG TAB PO SCH (08:22)
[2022-09-27] MEDS: ACETAMINOPHEN TAB 500 MG TAB PO PRN ×2 (08:22→14:05)
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
[2022-09-27] MEDS ORDERED: PANTOPRAZOLE 40 MG/10 ML VIAL IV SCH (09:00)
[2022-09-27] MEDS ORDERED: ONDANSETRON 4 MG/2 ML VIAL IVP PRN (10:11)
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
[2022-09-27 15:10] LABS: HCT 23.2 % (34.0-46.0); MCH 31.4 pg (25.0-35.0); MCHC 34.2 g/dL (31.0-37.0); MCV 91.8 fL (80.0-100.0); Mean Platelet Volume 8.7; Platelet Count 334 k/uL (150-450); RBC 2.52 m/uL (3.80-5.40); RDW 12.3 % (11.5-15.5); WBC 7.3 k/uL (3.8-10.6)
[2022-09-27 15:11] LABS: HGB 7.9 gm/dL (11.4-16.0)
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
[2022-09-27] MEDS ORDERED: PEG 3350 (236 GM/BTL) + LYTES 4,000 ML BOTTLE PO ONE (18:00)
[2022-09-27 18:04] LABS: Basophils % (A) 0 %; Eosinophils % (A) 1 %; Lymphocytes # (A) 1.5 k/uL (1.0-4.8); Lymphocytes % (A) 29 %; MCH 31.4 pg (25.0-35.0); MCHC 34.2 g/dL (31.0-37.0); MCV 91.9 fL (80.0-100.0); Mean Platelet Volume 9.6; Monocytes # (A) 0.2 k/uL (0-1.0); Monocytes % (A) 3 %; Neutrophils # (A) 3.5 k/uL (1.3-7.7); Neutrophils % (A) 67 %; Platelet Count 215 k/uL (150-450); RBC 2.18 m/uL (3.80-5.40); RDW 12.4 % (11.5-15.5); WBC 5.2 k/uL (3.8-10.6)
[2022-09-27 18:15] LABS: HGB 6.8 gm/dL (11.4-16.0)
[2022-09-27] MEDS: ATORVASTATIN 40 MG TAB PO SCH (19:56)
[2022-09-27] MEDS: PANTOPRAZOLE 40 MG/10 ML VIAL IV SCH (19:56)
[2022-09-27 22:38] LABS: Glucose,Whole Blood 209 mg/dL (70-110)
[2022-09-27] MEDS: MELATONIN 5 MG TABLET PO SCH (22:39)
[2022-09-28 06:15] LABS: Glucose,Whole Blood 174 mg/dL (70-110)
[2022-09-28] MEDS: METOPROLOL TARTRATE 25 MG TAB PO SCH ×3 (06:47→17:22)
[2022-09-28] MEDS: hydroCHLOROthiazide 12.5 MG CAP PO SCH (08:19)
[2022-09-28] MEDS: PANTOPRAZOLE 40 MG/10 ML VIAL IV SCH ×2 (08:19→21:32)
[2022-09-28] MEDS: VALSARTAN 160 MG TAB PO SCH (08:19)
[2022-09-28] MEDS: ACETAMINOPHEN TAB 500 MG TAB PO PRN ×2 (08:20→15:10)
--- NOTE | 2022-09-28 08:39 | P.PN ---
Subjective Progress Note Date: 09/28/22 Principal diagnosis: GI bleed This is a 62-year-old white female with known history of gastric sleeve who comes in with upper GI bleed. Patient scheduled for endoscopy today. She was requiring 1 unit PRBC yesterday. CBC is pending today. Still significant dyspnea on exertion. Pain is minimal Objective - Vital Signs Vital signs: Vital Signs Temp 98.2 F 09/28/22 04:00 Pulse 72 09/28/22 04:00 Resp 16 09/28/22 04:00 BP 124/62 09/28/22 04:00 Pulse Ox 99 09/28/22 04:00 FiO2 Intake & Output 09/27/22 09/28/22 09/28/22 18:59 06:59 18:59 Intake Total 310 Output Total 500 Balance -190 Intake: Blood Product 310 Rc As-1 Unit 310 [id number] Output: Urine/Stool Mix 500 Other: # Voids 1 1 - Constitutional General appearance: Present: cooperative. Absent: disheveled - Neck Neck: Absent: lymphadenopathy - Cardiovascular Rhythm: regular Heart sounds: normal: S1, S2 Abnormal Heart Sounds: Absent: S3 Gallop - Gastrointestinal General gastrointestinal: Present: soft. Absent: tenderness - Psychiatric Psychiatric: Present: A&O x's 3 - Labs CBC & Chem 7: 09/27/22 17:44 09/26/22 13:29 Labs: Abnormal Lab Results - Last 24 Hours (Table) 09/26/22 09/27/22 09/27/22 Range/Units 13:29 09:16 17:44 RBC 2.52 L 2.18 L (3.80-5.40) m/uL Hgb 7.9 L D 6.8 L* (11.4-16.0) gm/dL Hct 23.2 L 20.0 L (34.0-46.0) % POC Glucose (mg/dL) (70-110) mg/dL Crossmatch See Detail 09/27/22 09/28/22 Range/Units 22:36 06:13 RBC (3.80-5.40) m/uL Hgb (11.4-16.0) gm/dL Hct (34.0-46.0) % POC Glucose (mg/dL) 209 H 174 H (70-110) mg/dL Crossmatch Assessment and Plan (1) GI bleed Current Visit: Yes Status: Acute Code(s): K92.2 - GASTROINTESTINAL HEMORRHAGE, UNSPECIFIED SNOMED Code(s): 18893172 Plan: Watch sugar closely. Await endoscopy. Check CBC in a.m. Check CMP in a.m.
[2022-09-28 08:52] LABS: HCT 23.2 % (34.0-46.0); HGB 8.1 gm/dL (11.4-16.0); MCH 31.6 pg (25.0-35.0); MCHC 34.9 g/dL (31.0-37.0); MCV 90.4 fL (80.0-100.0); Mean Platelet Volume 8.7; Platelet Count 257 k/uL (150-450); RBC 2.56 m/uL (3.80-5.40); RDW 12.7 % (11.5-15.5)
[2022-09-28 09:01] LABS: African American GFR (CKD) >90 (>60 ml/min/1.73 sqM); Anion Gap 7 mmol/L; Blood Urea Nitrogen 16 mg/dL (7-17); Calcium 8.6 mg/dL (8.4-10.2); Carbon Dioxide 26 mmol/L (22-30); Chloride 108 mmol/L (98-107); Glucose 159 mg/dL (74-99); Non-African American GFR(CKD) >90 (>60 ml/min/1.73 sqM); Potassium 3.9 mmol/L (3.5-5.1); Sodium 141 mmol/L (137-145)
--- NOTE | 2022-09-28 09:57 | P.PN ---
Subjective Progress Note Date: 09/28/22 CHIEF COMPLAINT: GI bleed HISTORY OF PRESENT ILLNESS: Patient complains of still feeling a little short of breath and weak. She's had no further blood in her stools. She does have epigastric tenderness. She is scheduled for EGD and colonoscopy today with GI service. Her hemoglobin was 6.8 yesterday she did receive a unit of blood. Repeat hemoglobin 8.1. PHYSICAL EXAM: VITAL SIGNS: Reviewed. GENERAL: Well-developed in no acute distress. HEENT: No sclera icterus. Extraocular movements grossly intact. Moist buccal mucosa. Head is atraumatic, normocephalic. ABDOMEN: Soft. Nondistended. Epigastric tenderness NEUROLOGIC: Alert and oriented. Cranial nerves II through XII grossly intact. ASSESSMENT: 1. Acute GI bleed with vomiting bright red blood and black stools 2. History of Pastora-en-Y bypass PLAN: -Patient scheduled for EGD and colonoscopy today with GI service -Continue PPI -Continue to hold aspirin -Continue to monitor hemoglobin -Continue to monitor for signs or symptoms of bleeding Physician Supervisor In Circuit Testing note has been reviewed by physician. Signing provider agrees with the documented findings, assessment, and plan of care. I have personally seen and examined the patient, reviewed the GERMINATION WORKER /PAs history, exam and MDM and agree with the assessment and plan as written. Based on total visit time, I have performed more than 50% of the visit. As above: Upper endoscopy shows marginal ulcer. No active bleeding or blood within the lumen of the colon or bowel. Hemoglobin 8.1. Repeat hemoglobin tomorrow. Continue antiacids. Will follow. Objective - Vital Signs Vital signs: Vital Signs Temp 98.2 F 09/28/22 08:00 Pulse 95 09/28/22 08:00 Resp 17 09/28/22 08:00 BP 134/86 09/28/22 08:00 Pulse Ox 98 09/28/22 08:00 FiO2 Intake & Output 09/27/22 09/28/22 09/28/22 18:59 06:59 18:59 Intake Total 310 Output Total 500 Balance -190 Intake: Blood Product 310 Rc As-1 Unit 310 [id number] Output: Urine/Stool Mix 500 Other: # Voids 1 1 - Labs CBC & Chem 7: 09/28/22 08:30 09/28/22 08:30 Labs: Abnormal Lab Results - Last 24 Hours (Table) 09/26/22 09/27/22 09/27/22 Range/Units 13:29 09:16 17:44 RBC 2.52 L 2.18 L (3.80-5.40) m/uL Hgb 7.9 L D 6.8 L* (11.4-16.0) gm/dL Hct 23.2 L 20.0 L (34.0-46.0) % Chloride (98-107) mmol/L Glucose (74-99) mg/dL POC Glucose (mg/dL) (70-110) mg/dL Crossmatch See Detail 09/27/22 09/28/22 09/28/22 Range/Units 22:36 06:13 08:30 RBC 2.56 L (3.80-5.40) m/uL Hgb 8.1 L (11.4-16.0) gm/dL Hct 23.2 L (34.0-46.0) % Chloride (98-107) mmol/L Glucose (74-99) mg/dL POC Glucose (mg/dL) 209 H 174 H (70-110) mg/dL Crossmatch 09/28/22 Range/Units 08:30 RBC (3.80-5.40) m/uL Hgb (11.4-16.0) gm/dL Hct (34.0-46.0) % Chloride 108 H (98-107) mmol/L Glucose 159 H (74-99) mg/dL POC Glucose (mg/dL) (70-110) mg/dL Crossmatch
[2022-09-28] MEDS: SODIUM CHLORIDE 0.9% 1,000 ML IV SCH (11:26)
[2022-09-28 12:01] LABS: Glucose,Whole Blood 173 mg/dL (70-110)
[2022-09-28] MEDS ORDERED: PROPOFOL 10 MG/ML 20 ML VIAL IV ONE (15:35)
[2022-09-28] MEDS ORDERED: LIDOCAINE 2% INJ 20 MG/ML (2 ML VIAL) ONE (15:35)
[2022-09-28] MEDS ORDERED: IV FLUID CONTINUATION 1,000 ML IV ONE (15:36)
--- NOTE | 2022-09-28 16:05 | P.PCN ---
Date of Procedure: 09/28/22 Procedure(s) Performed: Brief history: Patient is a pleasant 62-year-old white female scheduled for an elective upper endoscopy as well as colonoscopy as a part of evaluation of acute GI bleed. She presents to the hospital with episodes of hematemesis followed by multiple episodes of bright red blood per rectum. Initial hemoglobin was 6.8 g/dL requiring 1 unit of PRBC transfusion. She has prior history of gastric bypass surgery 6 years ago. Because of the ongoing bleeding she is scheduled for an upper endoscopy as well as colonoscopy to evaluate further Procedure performed: Esophagogastroduodenoscopy with biopsy Colonoscopy Preoperative diagnosis: Acute GI bleed Anesthesia: [facility] Procedure: After informed consent was obtained from the patient was brought into the endoscopy unit and IV sedation was administered by anesthesia under continuous monitoring. Initially upper endoscopy was done. The Olympus GF 160 video endoscope was inserted inserted into the mouth and esophagus intubated without any difficulty and was gradually advanced into the stomach the gastric pouch appeared normal. There was evidence of Pastora-en-Y gastric bypass surgery noted. There was a 1 mm change based anastomotic ulcer noted with no active bleeding. Biopsies were done from the margin of the ulcer. The scope was advanced into the jejunum and 60 cm visualized and appeared normal. The scope was then withdrawn into the esophagus. The GE junction was located at 36 cm to the incisors. It appeared regular with no erythema erosions or ulcerations. Rest of the esophagus appeared normal. Patient tolerated the procedure well. At this time the patient continued to remain sedation. Initial digital rectal examination was normal. Olympus CF 160 video colonoscope was then inserted into the rectum and gradually advanced to the cecum without any difficulty. Careful examination was performed as the scope was gradually being withdrawn. The prep was excellent. No blood seen in the colon. The cecum, ascending colon, transverse colon, descending colon, sigmoid colon and rectum appeared normal. Retroflexion was performed in the rectum and no lesions were noted. Patient tolerated the procedure well. Impression: 1. Upper endoscopy revealed a 1 cm clean-based gastric anastomotic ulcer with no active bleeding and evidence of Pastora-en-Y gastric bypass 2. Colonoscopy was within normal limits with no evidence of colorectal neoplasia Recommendations: Findings of this examination were discussed with the patient as well as her family. She was advised to follow with the biopsy results. Continue with Protonix 40 mg twice daily. Advance diet as tolerated. Monitor CBC daily.
[2022-09-28 16:42] LABS: Glucose,Whole Blood 157 mg/dL (70-110)
[2022-09-28 20:06] LABS: Glucose,Whole Blood 231 mg/dL (70-110)
[2022-09-28] MEDS: ATORVASTATIN 40 MG TAB PO SCH (21:32)
[2022-09-28] MEDS: MELATONIN 5 MG TABLET PO SCH ×2 (21:32)
[2022-09-28] MEDS: INSULIN ASPART (NovoLOG) 100 UNIT/ML VIAL SQ SCH (21:32)
[2022-09-29] MEDS: SODIUM CHLORIDE 0.9% 1,000 ML IV SCH ×2 (00:39→12:39)
[2022-09-29] MEDS: PANTOPRAZOLE 40 MG/10 ML VIAL IV SCH (09:23)
[2022-09-29] MEDS: VALSARTAN 160 MG TAB PO SCH (09:23)
[2022-09-29] MEDS: hydroCHLOROthiazide 12.5 MG CAP PO SCH (09:23)
[2022-09-29] MEDS: METOPROLOL TARTRATE 25 MG TAB PO SCH (09:30)
[2022-09-29] MEDS: INSULIN ASPART (NovoLOG) 100 UNIT/ML VIAL SQ SCH ×2 (10:56→12:39)
[2022-09-29 10:57] VITALS: RESP 17
[2022-09-29 11:37] LABS: Glucose,Whole Blood 135 mg/dL (70-110)
--- NOTE | 2022-09-29 11:55 | P.PN ---
Subjective Progress Note Date: 09/29/22 Principal diagnosis: Marginal ulcer Patient doing well today. No further bleeding. She is tolerating her diet. Morning labs pending. Objective - Vital Signs Vital signs: Vital Signs Temp 98.4 F 09/29/22 08:00 Pulse 80 09/29/22 08:00 Resp 17 09/29/22 08:00 BP 161/86 09/29/22 08:00 Pulse Ox 98 09/29/22 08:00 FiO2 Intake & Output 09/28/22 09/29/22 09/29/22 18:59 06:59 18:59 Intake Total 590 480 Balance 590 480 Intake: IV 350 Oral 240 480 Other: # Voids 2 # Bowel Movements 2 - Exam Abdomen: Soft, nontender, nondistended - Labs CBC & Chem 7: 09/28/22 08:30 09/28/22 08:30 Labs: Abnormal Lab Results - Last 24 Hours (Table) 09/28/22 09/28/22 09/28/22 Range/Units 11:55 16:33 20:04 POC Glucose (mg/dL) 173 H 157 H 231 H (70-110) mg/dL 09/29/22 Range/Units 06:22 POC Glucose (mg/dL) 135 H (70-110) mg/dL Assessment and Plan (1) GI bleed Narrative/Plan: Patient doing well at this time. Advance diet as tolerated. Outpatient prescription for omeprazole and Carafate provided. Current Visit: Yes Status: Acute Code(s): K92.2 - GASTROINTESTINAL HEMORRHAGE, UNSPECIFIED SNOMED Code(s): 37913779
[2022-09-29 12:13] LABS: Glucose,Whole Blood 226 mg/dL (70-110)
[2022-09-29 13:09] VITALS: BP 174/81; PULSE 84; TEMP 97.9
--- NOTE | 2022-09-29 13:32 | DS ---
DISCHARGE SUMMARY FINAL DIAGNOSES: 1. Acute gastrointestinal bleed, possibly secondary to gastric anastomotic ulcer with acute blood loss anemia, status post EGD. 2. Diabetes mellitus, type 2. 3. Hypertension. 4. Hyperlipidemia. 5. Multiple medical issues. DISCHARGE DISPOSITION: The patient is discharged in stable condition. Guarded prognosis. Discharge cleared by Dr. Renee, the patient is keen on going home. HISTORY OF PRESENT ILLNESS: This 62-year-old woman with a past medical history of multiple medical problems, admitted with GI bleed, acute blood loss anemia. An EGD showed a gastric anastomotic ulcer. The patient was transfused and hemoglobin improved to 8.1. The patient is extremely keen on going home today and the patient will be discharged in stable condition, guarded prognosis. PHYSICAL EXAMINATION: VITAL SIGNS: Stable. CARDIOVASCULAR: S1, S2. ABDOMEN: Soft, nontender. NERVOUS SYSTEM: No focal deficits. DISCHARGE ADVICE AND MEDICATIONS: Recommend to continue the home medications and also omeprazole and Carafate as recommended by Dr. Renee. Follow up with Dr. Donnelly with CBC, BMP. Avoid supplements, ibuprofen, aspirin for now. Reevaluate as outpatient. MMODL / IJN: [id number] /
[2022-09-29 18:26] LABS: HCT 21.1 % (34.0-46.0); HGB 7.6 gm/dL (11.4-16.0); MCH 32.5 pg (25.0-35.0); MCHC 35.8 g/dL (31.0-37.0); MCV 90.9 fL (80.0-100.0); Mean Platelet Volume 8.3; Platelet Count 223 k/uL (150-450); RBC 2.33 m/uL (3.80-5.40); RDW 12.9 % (11.5-15.5); WBC 3.8 k/uL (3.8-10.6)
[2022-09-29 20:06] LABS: African American GFR (CKD) >90 (>60 ml/min/1.73 sqM); Anion Gap 8 mmol/L; Blood Urea Nitrogen 8 mg/dL (7-17); Calcium 8.3 mg/dL (8.4-10.2); Carbon Dioxide 25 mmol/L (22-30); Chloride 108 mmol/L (98-107); Glucose 133 mg/dL (74-99); Non-African American GFR(CKD) >90 (>60 ml/min/1.73 sqM); Potassium 3.6 mmol/L (3.5-5.1); Sodium 141 mmol/L (137-145)
[2022-09-29 20:17] LABS: ALT 14 U/L (4-34); AST 16 U/L (14-36); Alkaline Phosphatase 46 U/L (38-126); Total Bilirubin 0.1 mg/dL (0.2-1.3); Total Protein 4.7 g/dL (6.3-8.2)
== END 2022-09-29 15:57 | disposition home or self-care (01) | DRG 379 ==
LOC: EC 12:20 → 6NMEDSUR 16:20 → 3SCARD 09-27 22:12 → OBSVTOIN 09-28 14:30
PROVIDERS: ADMIT Family Medicine; ATTEND Family Medicine
PROC: 0DB48ZX Excision of Esophagogastric Junction, Via Natural or Artificial Opening Endoscopic, Diagnostic (ICD-10-PCS; principal; 2022-09-28 13:40)
PROC: 0DJD8ZZ Inspection of Lower Intestinal Tract, Via Natural or Artificial Opening Endoscopic (ICD-10-PCS; 2022-09-28 13:40)
DX: K28.4 Chronic or unspecified gastrojejunal ulcer with hemorrhage (principal); E78.5 Hyperlipidemia, unspecified; I10 Essential (primary) hypertension; Z98.84 Bariatric surgery status; I25.10 Atherosclerotic heart disease of native coronary artery without angina pectoris; E11.9 Type 2 diabetes mellitus without complications; D64.9 Anemia, unspecified; Z79.82 Long term (current) use of aspirin; Z79.899 Other long term (current) drug therapy; Z81.8 Family history of other mental and behavioral disorders; Z95.5 Presence of coronary angioplasty implant and graft; Z96.612 Presence of left artificial shoulder joint; Z82.3 Family history of stroke; Z82.49 Family history of ischemic heart disease and other diseases of the circulatory system; Z88.0 Allergy status to penicillin; Z91.041 Radiographic dye allergy status; Z87.19 Personal history of other diseases of the digestive system; I83.90 Asymptomatic varicose veins of unspecified lower extremity
CPT/HCPCS: 36415; 43239; 45378; 80048; 80053; 81003; 82150; 83690; 84484; 85025; 85027; 86850; 86900; 86901; 86920; 88305; 93005; 96374; 96375; 99285

== ENCOUNTER 2023-04-19 09:38 | Inpatient (IN) | payer MEDICARE ==
[2023-04-19] MEDS ORDERED: ASPIRIN 81 MG PO STA (09:59)
[2023-04-19] MEDS ORDERED: NITROGLYCERIN OINT 1 INCH/GM PACKET TOPICAL STA (09:59)
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
--- NOTE | 2023-04-19 10:22 | XR ---
EXAMINATION TYPE: XR chest 2V DATE OF EXAM: 04/19/2023 COMPARISON: 02/12/2017 HISTORY: 62-year-old female with chest pain TECHNIQUE: PA and lateral views FINDINGS: The cardiomediastinal silhouette, aorta, and pulmonary vasculature are within normal limits. Mild int erstitial prominence is unchanged. No consolidation or pleural effusion. IMPRESSION: Chronic changes. No acute process seen..
[2023-04-19 10:29] LABS: Basophils % (A) 0 %; Eosinophils # (A) 0.1 k/uL (0-0.7); Eosinophils % (A) 2 %; HCT 35.5 % (34.0-46.0); Lymphocytes # (A) 2.3 k/uL (1.0-4.8); Lymphocytes % (A) 44 %; MCH 29.5 pg (25.0-35.0); MCHC 33.8 g/dL (31.0-37.0); MCV 87.3 fL (80.0-100.0); Mean Platelet Volume 7.8; Monocytes # (A) 0.3 k/uL (0-1.0); Monocytes % (A) 5 %; Neutrophils # (A) 2.4 k/uL (1.3-7.7); Neutrophils % (A) 46 %; Platelet Count 258 k/uL (150-450); RBC 4.06 m/uL (3.80-5.40); WBC 5.2 k/uL (3.8-10.6)
[2023-04-19 10:40] LABS: Albumin 4.1 g/dL (3.5-5.0); Calcium 9.1 mg/dL (8.4-10.2); Magnesium 1.7 mg/dL (1.6-2.3); Potassium 4.6 mmol/L (3.5-5.1); Total Bilirubin 0.4 mg/dL (0.2-1.3); Total Protein 6.4 g/dL (6.3-8.2)
[2023-04-19 10:45] LABS: INR 0.9 (<1.2); Partial Thromboplastin Time 23.8 sec (22.0-30.0); Prothrombin Time 9.8 sec (9.0-12.0)
[2023-04-19] MEDS ORDERED: NITROGLYCERIN SL TABS 0.4 MG TAB SUBLINGUAL PRN (11:20)
[2023-04-19] MEDS: NITROGLYCERIN OINT 1 INCH/GM PACKET TOPICAL SCH ×3 (11:48→23:17)
[2023-04-19] MEDS: METOPROLOL TARTRATE 25 MG TAB PO SCH (16:10)
[2023-04-19] MEDS: lisinopriL 20 MG TAB PO SCH (16:10)
[2023-04-20] MEDS: NITROGLYCERIN OINT 1 INCH/GM PACKET TOPICAL SCH (05:58)
[2023-04-20] MEDS ORDERED: ASPIRIN 325 MG TAB PO SCH (09:00)
[2023-04-20] MEDS: METOPROLOL TARTRATE 25 MG TAB PO SCH ×2 (09:12→15:57)
[2023-04-20] MEDS: LISINOPRIL-HCTZ 20-25 MG 1 EACH TAB PO SCH (09:12)
[2023-04-20] MEDS: ASPIRIN 325 MG TAB PO SCH (09:12)
[2023-04-20 10:07] LABS: Chol/HDL Ratio 6.28 Ratio; LDL Cholesterol,Calculated 173.1 mg/dL (0.0-131.0)
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
[2023-04-20] MEDS: lisinopriL 20 MG TAB PO SCH (15:57)
[2023-04-21] MEDS: LISINOPRIL-HCTZ 20-25 MG 1 EACH TAB PO SCH (09:23)
[2023-04-21] MEDS: ASPIRIN 325 MG TAB PO SCH (09:23)
[2023-04-21] MEDS: METOPROLOL TARTRATE 25 MG TAB PO SCH ×2 (09:23→15:53)
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
--- NOTE | 2023-04-21 12:44 | P.PN ---
Subjective Progress Note Date: 04/21/23 The patient is a 62-year-old female presented to the hospital with new onset of chest discomfort. The patient states she had been experiencing shortness of breath over the last month, but recently developed chest pressure with arm numbness and tingling. The patient also reports an increase in fatigue. The patient states she did well overnight. No current chest pain or chest pressure. No difficulty breathing. She still is weak and fatigued. Extensive conversation with the patient regarding past use of statins. The patient states she was intolerant to atorvastatin. She is currently consuming a catered diet along with taking supplements from [facility] to help improve her cholesterol. GENERAL: Well-appearing, well-nourished and in no acute distress. NECK: Supple without JVD or thyromegaly. LUNGS: Breath sounds clear to auscultation bilaterally. Respiration equal and unlabored. No wheezes, rales or rhonchi. HEART: Regular rate and rhythm without murmurs, rubs or gallops. S1 and S2 heard. EXTREMITIES: Normal range of motion, no edema. No clubbing or cyanosis. Peripheral pulses intact and strong. TELEMETRY: Sinus rhythm overnight LABS: Fasting lipid profile shows triglycerides at 219, LDL 173, HDL 41 IMPRESSION: Chest discomfort History of coronary artery disease Hypertension Hyperlipidemia History of statin intolerance PLAN: Start low-dose pravastatin with history of statin intolerance Nothing by mouth after midnight tomorrow in preparation for coronary angiogram on Saturday I am dictating on behalf of Dr Zachary Diaz's history/physical and assessment/plan. Objective - Vital Signs Vital signs: Vital Signs Temp 97.5 F L 04/21/23 07:25 Pulse 75 04/21/23 07:25 Resp 21 04/21/23 07:25 BP 120/86 04/21/23 07:25 Pulse Ox 97 04/21/23 07:25 FiO2 Intake & Output 04/20/23 04/21/23 04/21/23 18:59 06:59 18:59 Intake Total 540 Balance 540 Intake: Oral 540 Other: # Voids 4 1 # Bowel Movements 1 - Labs CBC & Chem 7: 04/19/23 10:08 04/19/23 10:08
--- NOTE | 2023-04-21 19:28 | P.PN ---
Subjective Progress Note Date: 04/21/23 62-year-old female presenting to the emergency department with concerns for chest discomfort. Onset was yesterday while picking asparagus. Symptoms then resolved. Patient had return of symptoms this morning lifting navarrete. Patient had tightness in her chest that was somewhat severe with some associated with tingling of the arms. Patient has mild associated dyspnea that minimally continues. No nausea. No diaphoresis. Patient does have cardiac history of previous stents however symptoms were not similar at that time. EKG that showed normal sinus rhythm with a right bundle branch block, initial troponin was negative, d-dimer was somewhat elevated. Due to the concerning nature of the patient's symptoms, as well as her history, she was subsequently admitted for further examination and evaluation. Patient has a pertinent past medical history that includes coronary artery disease, angina, diabetes, hyperlipidemia, hypertension. Patient is a significant past surgical history that includes PTCA with stent to proximal LAD in 2012. This morning patient reports that she is asymptomatic. She is denying chest pain, shortness of breath, heart palpitations, chest pressure, fatigue, and no numbness or tingling. Her blood pressure is currently adequately controlled. She does report historically her last stent placement was done primarily due to her symptoms, as she also demonstrated a normal EKG and negative troponins at that time as well. Cardio completed in ED reveals WBC 5.2, hemoglobin 12, hematocrit 35.5 and platelet count of 258, sodium 139, potassium 4.6, BUN/creatinine of 18/0.83 and blood glucose of 144 Objective - Vital Signs Vital signs: Vital Signs Temp 97.5 F L 04/21/23 07:25 Pulse 75 04/21/23 07:25 Resp 21 04/21/23 07:25 BP 120/86 04/21/23 07:25 Pulse Ox 97 04/21/23 07:25 FiO2 Intake & Output 04/20/23 04/21/23 04/21/23 18:59 06:59 18:59 Intake Total 540 Balance 540 Intake: Oral 540 Other: # Voids 4 1 # Bowel Movements 1 - Exam GENERAL: The patient is alert and oriented x3, not in any acute distress. Well developed, well nourished. HEENT: Pupils are round and equally reacting to light. EOMI. No scleral icterus. No conjunctival pallor. Normocephalic, atraumatic. No pharyngeal erythema. No thyromegaly. CARDIOVASCULAR: S1 and S2 present. No murmurs, rubs, or gallops. PULMONARY: Chest is clear to auscultation, no wheezing or crackles. ABDOMEN: Soft, nontender, nondistended, normoactive bowel sounds. No palpable organomegaly. MUSCULOSKELETAL: No joint swelling or deformity. EXTREMITIES: No cyanosis, clubbing, or pedal edema. NEUROLOGICAL: Gross neurological examination did not reveal any focal deficits. SKIN: No rashes. - Labs CBC & Chem 7: 04/19/23 10:08 04/19/23 10:08 Assessment and Plan Assessment: 1. Chest pain rule out acute coronary syndrome - Patient will be admitted to telemetry with plans to monitor EKG and trend troponin; patient has been placed on Nitropaste in the ED which will be continued till evaluation by cardiology - Patient remains on aspirin, beta blockers and lisinopril 2. Mild renal injury; patient has been placed on slow IV fluid hydration; we will monitor renal function and monitor strict RENU's, daily weights; avoid n ephrotoxins and hypotension; we will plan to discontinue Zestoretic if renal function continues to deteriorate 3. Elevated d-dimer; elevated at 0.60 upon arrival to ED; repeat d-dimer is down to 0.4; no further workup was recommended 4. Hyperlipidemia; currently not on any statin therapy; we will order lipid profile and make recommendations 5. Hypertension; continue home dose of metoprolol 25 mg twice a day and Zestoretic 2024 one daily 6. Coronary artery disease; Patient has a significant past surgical history that includes PTCA with stent to proximal LAD in 2012. DVT prophylaxis; SCDs CODE STATUS; full code
[2023-04-21] MEDS: PRAVASTATIN SODIUM 20 MG TAB PO SCH (21:21)
[2023-04-22] MEDS: METOPROLOL TARTRATE 25 MG TAB PO SCH ×2 (08:14→16:20)
[2023-04-22] MEDS: ASPIRIN 325 MG TAB PO SCH (08:14)
[2023-04-22] MEDS: LISINOPRIL-HCTZ 20-25 MG 1 EACH TAB PO SCH (08:14)
[2023-04-22 09:39] LABS: African American GFR (CKD) 86 (>60 ml/min/1.73 sqM); Anion Gap 9 mmol/L; Blood Urea Nitrogen 20 mg/dL (7-17); Calcium 9.3 mg/dL (8.4-10.2); Carbon Dioxide 25 mmol/L (22-30); Chloride 101 mmol/L (98-107); Glucose 180 mg/dL (74-99); Non-African American GFR(CKD) 75 (>60 ml/min/1.73 sqM); Potassium 4.6 mmol/L (3.5-5.1); Sodium 135 mmol/L (137-145)
--- NOTE | 2023-04-22 12:53 | P.PN ---
Subjective Progress Note Date: 04/22/23 The patient is a 62-year-old female presented to the hospital with new onset of chest discomfort. The patient states she had been experiencing shortness of breath over the last month, but recently developed chest pressure with arm numbness and tingling. The patient also reports an increase in fatigue. The patient states she did well overnight. No current chest pain or chest pressure. No difficulty breathing. She still is weak and fatigued. GENERAL: Well-appearing, well-nourished and in no acute distress. NECK: Supple without JVD or thyromegaly. LUNGS: Breath sounds clear to auscultation bilaterally. Respiration equal and unlabored. No wheezes, rales or rhonchi. HEART: Regular rate and rhythm without murmurs, rubs or gallops. S1 and S2 heard. EXTREMITIES: Normal range of motion, no edema. No clubbing or cyanosis. Peripheral pulses intact and strong. TELEMETRY: Sinus rhythm overnight LABS: Sodium 135, potassium 4.6, BUN 20, creatinine 0.85 IMPRESSION: Chest discomfort History of coronary artery disease Hypertension Hyperlipidemia History of statin intolerance PLAN: Continue current medication regimen Nothing by mouth after midnight in preparation for coronary angiogram with [facility] clinical psychologist private practice Dr. Cline I am dictating on behalf of Dr Zachary Diaz's history/physical and ass essment/plan. Objective - Vital Signs Vital signs: Vital Signs Temp 97.6 F 04/22/23 07:16 Pulse 68 04/22/23 08:00 Resp 18 04/22/23 08:00 BP 137/78 04/22/23 07:16 Pulse Ox 96 04/22/23 07:16 FiO2 Intake & Output 04/21/23 04/22/23 04/22/23 18:59 06:59 18:59 Intake Total 360 118 Balance 360 118 Intake: Oral 360 118 Other: Voiding Method Toilet # Voids 4 1 - Labs CBC & Chem 7: 04/19/23 10:08 04/22/23 08:42 Labs: Abnormal Lab Results - Last 24 Hours (Table) 04/22/23 Range/Units 08:42 Sodium 135 L (137-145) mmol/L BUN 20 H (7-17) mg/dL Glucose 180 H (74-99) mg/dL
[2023-04-22] MEDS ORDERED: lisinopriL 20 MG TAB PO SCH ×3 (16:00→21:00)
--- NOTE | 2023-04-22 17:20 | P.PN ---
Subjective Progress Note Date: 04/22/23 62-year-old female presenting to the emergency department with concerns for chest discomfort. Onset was yesterday while picking asparagus. Symptoms then resolved. Patient had return of symptoms this morning lifting navarrete. Patient had tightness in her chest that was somewhat severe with some associated with tingling of the arms. Patient has mild associated dyspnea that minimally continues. No nausea. No diaphoresis. Patient does have cardiac history of previous stents however symptoms were not similar at that time. EKG that showed normal sinus rhythm with a right bundle branch block, initial troponin was negative, d-dimer was somewhat elevated. Due to the concerning nature of the patient's symptoms, as well as her history, she was subsequently admitted for further examination and evaluation. Patient has a pertinent past medical history that includes coronary artery disease, angina, diabetes, hyperlipidemia, hypertension. Patient is a significant past surgical history that includes PTCA with stent to proximal LAD in 2012. This morning patient reports that she is asymptomatic. She is denying chest pain, shortness of breath, heart palpitations, chest pressure, fatigue, and no numbness or tingling. Her blood pressure is currently adequately controlled. She does report historically her last stent placement was done primarily due to her symptoms, as she also demonstrated a normal EKG and negative troponins at that time as well. Cardio completed in ED reveals WBC 5.2, hemoglobin 12, hematocrit 35.5 and platelet count of 258, sodium 139, potassium 4.6, BUN/creatinine of 18/0.83 and blood glucose of 144 --Is seen and evaluated in room at bedside - Vital signs are reviewed and remained stable with temperature of 97.7, pulse 80, respiration 18, blood pressure 119/75 and O2 saturation 96% -Lab review shows a sodium of 135: Present blood 0.6, BUN/creatinine of 20/0.85, total cholesterol of 258, LDL of 173 and triglycerides of 219 -- Patient is scheduled for cardiac catheterization tomorrow morning Objective - Vital Signs Vital signs: Vital Signs Temp 97.6 F 04/22/23 07:16 Pulse 68 04/22/23 08:00 Resp 18 04/22/23 08:00 BP 137/78 04/22/23 07:16 Pulse Ox 96 04/22/23 07:16 FiO2 Intake & Output 04/21/23 04/22/23 04/22/23 18:59 06:59 18:59 Intake Total 360 118 Balance 360 118 Intake: Oral 360 118 Other: Voiding Method Toilet # Voids 4 1 - Exam GENERAL: The patient is alert and oriented x3, not in any acute distress. Well developed, well nourished. HEENT: Pupils are round and equally reacting to light. EOMI. No scleral icterus. No conjunctival pallor. Normocephalic, atraumatic. No pharyngeal erythema. No thyromegaly. CARDIOVASCULAR: S1 and S2 present. No murmurs, rubs, or gallops. PULMONARY: Chest is clear to auscultation, no wheezing or crackles. ABDOMEN: Soft, nontender, nondistended, normoactive bowel sounds. No palpable organomegaly. MUSCULOSKELETAL: No joint swelling or deformity. EXTREMITIES: No cyanosis, clubbing, or pedal edema. NEUROLOGICAL: Gross neurological examination did not reveal any focal deficits. SKIN: No rashes. - Labs CBC & Chem 7: 04/19/23 10:08 04/22/23 08:42 Labs: Abnormal Lab Results - Last 24 Hours (Table) 04/22/23 Range/Units 08:42 Sodium 135 L (137-145) mmol/L BUN 20 H (7-17) mg/dL Glucose 180 H (74-99) mg/dL Assessment and Plan Assessment: 1. Chest pain rule out acute coronary syndrome - Patient will be admitted to telemetry with plans to monitor EKG and trend trop onin; patient has been placed on Nitropaste in the ED which will be continued till evaluation by cardiology - Patient remains on aspirin, beta blockers and lisinopril 2. Mild renal injury; patient has been placed on slow IV fluid hydration; we will monitor renal function and monitor strict RENU's, daily weights; avoid nephrotoxins and hypotension; we will plan to discontinue Zestoretic if renal f unction continues to deteriorate 3. Elevated d-dimer; elevated at 0.60 upon arrival to ED; repeat d-dimer is down to 0.4; no further workup was recommended 4. Hyperlipidemia; currently not on any statin therapy; we will order lipid profile and make recommendations 5. Hypertension; continue home dose of metoprolol 25 mg twice a day and Zestoretic 2024 one daily 6. Coronary artery disease; Patient has a significant past surgical history that includes PTCA with stent to proximal LAD in 2012. DVT prophylaxis; SCDs CODE STATUS; full code
[2023-04-22] MEDS: lisinopriL 20 MG TAB PO SCH (17:37)
[2023-04-22] MEDS: PRAVASTATIN SODIUM 20 MG TAB PO SCH (20:02)
[2023-04-23] MEDS: METOPROLOL TARTRATE 25 MG TAB PO SCH ×2 (08:06→17:23)
[2023-04-23] MEDS: ASPIRIN 325 MG TAB PO SCH (08:06)
[2023-04-23] MEDS: LISINOPRIL-HCTZ 20-25 MG 1 EACH TAB PO SCH (08:07)
--- NOTE | 2023-04-23 09:21 | P.PN ---
Subjective Progress Note Date: 04/23/23 Principal diagnosis: Chest pain This is a 62-year-old female who presented to the emergency department with complaints of chest discomfort. She reportedly has been experiencing shortness of breath over the last month but more recently had chest pressure with arm numbness and tingling. Patient also reports increased fatigue. She is seen this morning sitting up in bed alert and oriented. Denies any current chest pain. Plan is for a heart catheterization today. Objective - Vital Signs Vital signs: Vital Signs Temp 98.0 F 04/23/23 07:00 Pulse 74 04/23/23 07:00 Resp 18 04/23/23 07:00 BP 115/77 04/23/23 07:00 Pulse Ox 98 04/23/23 07:00 FiO2 Intake & Output 04/22/23 04/23/23 04/23/23 18:59 06:59 18:59 Intake Total 118 Balance 118 Intake: Oral 118 Other: Voiding Method Toilet Toilet # Voids 3 1 - Constitutional General appearance: Present: cooperative, no acute distress - EENT Eyes: Present: PERRLA - Neck Neck: Present: normal ROM. Absent: lymphadenopathy, rigidity - Respiratory Respiratory: bilateral: CTA - Cardiovascular Rhythm: regular Heart sounds: normal: S1, S2 - Gastrointestinal General gastrointestinal: Present: soft. Absent: tenderness - Integumentary Integumentary: Present: normal, normal turgor - Psychiatric Psychiatric: Present: A&O x's 3, appropriate affect, intact judgment & insight - Labs CBC & Chem 7: 04/19/23 10:08 04/22/23 08:42 Labs: Abnormal Lab Results - Last 24 Hours (Table) 04/22/23 Range/Units 08:42 Sodium 135 L (137-145) mmol/L BUN 20 H (7-17) mg/dL Glucose 180 H (74-99) mg/dL Assessment and Plan (1) Chest pain Current Visit: Yes Status: Acute Code(s): R07.9 - CHEST PAIN, UNSPECIFIED SNOMED Code(s): 58946088 (2) CAD (coronary artery disease) Current Visit: No Status: Acute Code(s): I25.10 - ATHSCL HEART DISEASE OF [place] CORONARY ARTERY W/O ANG PCTRS SNOMED Code(s): 73168767 (3) Diabetes Current Visit: No Status: Acute Code(s): E11.9 - TYPE 2 DIABETES MELLITUS WITHOUT COMPLICATIONS SNOMED Code(s): 30817224 (4) HTN (hypertension) Current Visit: No Status: Acute Code(s): I10 - ESSENTIAL (PRIMARY) HYPERTENSION SNOMED Code(s): 61074284 (5) Hyperlipemia Current Visit: No Status: Acute Code(s): E78.5 - HYPERLIPIDEMIA, UNSPECIFIED SNOMED Code(s): 68969532 Plan: Plan for heart cath today. Patient seen and evaluated by nurse practitioner, physician in agreement with plan
[2023-04-23] MEDS: lisinopriL 20 MG TAB PO SCH (17:23)
[2023-04-23] MEDS: SODIUM CHLORIDE 0.9% 1,000 ML IV SCH ×2 (17:23→20:20)
[2023-04-23] MEDS: PRAVASTATIN SODIUM 20 MG TAB PO SCH (20:26)
[2023-04-24] MEDS: SODIUM CHLORIDE 0.9% 1,000 ML IV SCH ×2 (08:25→11:54)
[2023-04-24] MEDS: ASPIRIN 325 MG TAB PO SCH (08:26)
[2023-04-24] MEDS: METOPROLOL TARTRATE 25 MG TAB PO SCH ×2 (08:26→17:06)
[2023-04-24] MEDS: LISINOPRIL-HCTZ 20-25 MG 1 EACH TAB PO SCH (08:26)
[2023-04-24] MEDS ORDERED: VERAPAMIL 2.5 MG/ML 2 ML AMP ONE (09:45)
[2023-04-24] MEDS ORDERED: fentaNYL (PF) 50 MCG/ML 2 ML AMP ONE (09:59)
[2023-04-24] MEDS ORDERED: HEPARIN SODIUM 1,000 UN/ML (10ML VL) ONE (09:59)
[2023-04-24] MEDS ORDERED: IV FLUID CONTINUATION 1,000 ML IV ONE (10:10)
[2023-04-24] MEDS ORDERED: fentaNYL (PF) 50 MCG/1 ML VIAL IVP ONE (10:20)
[2023-04-24] MEDS: LIDOCAINE 1% INJ 10MG/ML (5 ML VIAL-PF) SQ ONE ×2 (10:22→10:32)
[2023-04-24] MEDS ORDERED: MIDAZOLAM 2 MG/2 ML VIAL IVP ONE (10:35)
[2023-04-24] MEDS ORDERED: VERAPAMIL SYRINGE (5 MG/10 ML) INTRAARTER ONE (10:38)
[2023-04-24] MEDS: HEPARIN SODIUM 1,000 UN/ML (10ML VL) IV ONE ×2 (10:46→10:52)
[2023-04-24] MEDS ORDERED: CLOPIDOGREL 75 MG TAB ONE (10:53)
[2023-04-24] MEDS ORDERED: CLOPIDOGREL 75 MG TAB PO ONE (10:58)
[2023-04-24] MEDS ORDERED: IOPAMIDOL-370 100ML BTL INJ ONE ×2 (11:04→11:15)
[2023-04-24] MEDS ORDERED: RX INFO: IV CONTRAST WAS GIVEN 1 EACH MISC MISCELLANE PRN (11:27)
[2023-04-24] MEDS ORDERED: NITROGLYCERIN SL TABS 0.4 MG TAB SUBLINGUAL PRN (11:27)
[2023-04-24] MEDS ORDERED: ZOLPIDEM 5 MG TAB PO PRN (11:27)
[2023-04-24] MEDS ORDERED: ATROPINE SULFATE 0.1 MG/ML 10ML SYRINGE IV PRN (11:27)
[2023-04-24] MEDS ORDERED: MAG HYDROX/AL HYDROX/SIMETH 30 ML CUP PO PRN (11:27)
[2023-04-24] MEDS ORDERED: SODIUM CHLORIDE 0.9% 1,000 ML in EMPTY BAG 1 BAG IV SCH (11:30)
[2023-04-24] MEDS ORDERED: EZETIMIBE 10 MG TAB PO SCH (11:30)
--- NOTE | 2023-04-24 11:38 | P.CARDCATH ---
Date of Procedure: 04/24/23 Description of Procedure: Cardiac Catheterization: The patient is a 62-year-old female with a known history of CAD, hypertension and hyperlipidemia, multiple prior stenting who presented with new onset exertional angina. Her EKG and cardiac enzymes were unremarkable. She was evaluated by Dr. Diaz. Recommendations were made regarding cardiac catheterization, the risks and the complications were discussed with the patient who is in full understanding and agreement. Procedure Description: Patient was brought to medical lab tech instructor in fasting semi-sedated state after receiving Fentanyl and Benadryl achieiving moderate conscious sedated state. Using Xylocaine Anesthesia and Seldinger technique, a 6-Australian sheath was introduced in the left radial artery . Attempts to cannulate the right radial artery were unsuccessful. Subsequently, selective coronary angiography was performed using a 5-Australian 4 bend Shu catheter. Multiple views of the coronary artery including hemiaxial views were obtained. The 5-Australian pigtail catheter was used to cross the aortic valve and LVEDP was calculated. PCI: After removing the catheters 6-Australian EBU 3.75 guiding catheter was introduced into the system and after cannulating the left main a 0.014 BMW J-wire was positioned in the distal OM, subsequently 3.0 x 18 mm Xience claude point stent was deployed at 16 colleen. After removing the balloon a [place] eye IVUS was introduced and imaging were obtained. After removing the catheter of 4.0 x 8 mm NC Treck alone was advanced and one inflation in the proximal segment of the stent at 10 colleen was done. After removing the wires images were obtained and revealed stable successful stenting. Following that, catheter and sheath were removed. Hemostasis was obtained with deployment of TR band . There was no immediate complication. Patient was returned to room in stable condition. Of note, the patient received a total of 7000 units of intravenous heparin as well as intra-arterial verapamil. Her ACT was followed. She had chest discomfort and ventricular ectopic activity with the inflations that resolved at the end of the procedure. Findings: Left main: This is a short sized vessel, bifurcating into left circumflex and LAD, the left main has no high-grade stenosis. LAD: This is a large size vessel, reaching to the apex with a wraparound the apex segments. The stented segments in the proximal and mid LAD are patent. There was about a 10% in-stent restenosis. Left circumflex: This is a large nondominant vessel, giving rise to 2 obtuse marginal branch, the first one is very proximal. The proximal segment of the second obtuse marginal branch has a 70-80% stenosis, and regular. The rest of the vessel has no high-grade stenosis. RCA: This is a nondominant vessel, bifurcating distally to PDA and PLV. The midright coronary artery has 10-20% plaque without any evidence of high-grade stenosis. Left Ventriculogram: Not performed Hemodynamics: There was no gradient across the aortic valve, LVEDP was 14-16 mmHg Conclusion: 1. Significant obstructive disease in the mid left circumflex and second obtuse marginal branch 2. Patent stent in the LAD with minimal in-stent restenosis 3. Mild disease in the mid RCA 4. Successful stenting of the mid left circumflex and second obtuse marginal br anch with reduction of stenosis from 7080 percent to 0% with intravascular ultrasound imaging Recommendations: The patient will continue on aspirin and Plavix for 6 months without any interruption in addition to aggressive coronary risks modifications. The findings and the recommendations were discussed with the patient and the family and they were in full understanding and agreement. Duration of sedation is 55 minutes.
[2023-04-24 12:13] VITALS: RESP 14; TEMP 98.1
--- NOTE | 2023-04-24 13:20 | CDI ---
Documentation Clarification Form Date: 04/24/2023 12:55:55 PM From: Shannon Carreon RN, CCDS Admit Date: 04/19/2023 11:21:00 AM Patient Name: Shelby Xie Visit Number: [id number] Discharge Date: ATTENTION: The Clinical Documentation Specialists (CDI) and [facility] Coding Staff appreciate your assistance in clarifying documentation. Please respond to the clarification below the line at the bottom and electronically sign. The CDI & [facility] Coding staff will review the response and follow-up if needed. Please note: Queries are made part of the Legal Health Record. If you have any questions, please contact the author of this message via ITS. Dr. Amaury Oquendo Your patient has mild renal injury in the H/P and subsequent progress notes. Based on this information and the findings below, is there an additional diagnosis that is clinically appropriate for this patient? Patient history/risk factors: Coronary artery disease, Diabetes Mellitus, Hyperlipidemia, Hypertension Angina Clinical Indicators: 62-year-old female present with concerns for chest pain with previous cardiac history and previous stents. 04/19 VS: 170/92 63 20 98.1 99 % RA 5.26 BUN 18 Cr 0.83 GFR 77 04/22 BUN 20 Cr 0.85 GFR 75 Treatment: .9 NS 1,000 ML @ 100/HR 04/23-04/24 monitor renal function, monitor strict I/O Daily weight, avoid nephrotoxins and hypotension Is there an additional diagnosis that is clinically appropriate for this patient? [ ] Acute Kidney Injury [ ] No additional diagnosis/Not clinically significant [ ] Unable to determine [ ] Other, please specify Reference: KDIGO CLAIRE Criteria An increase in serum creatinine by greater than or equal to 0.3 mg/dL within 48 hours; An increase in serum creatinine by greater than or equal to 1.5 times baseline, which is known or presumed to have occurred within the prior 7 days; A urine volume less than 0.5 ml/kg/h for 6 hours. When the baseline is unknown the lowest creatinine during admission assumed to be baseline (Template Last Revised: December 2022) MTDD
[2023-04-24 14:04] VITALS: BMI 31.7
[2023-04-24] MEDS: lisinopriL 20 MG TAB PO SCH (17:06)
[2023-04-24 18:03] VITALS: BP 108/68; PULSE 65
[2023-04-24] MEDS ORDERED: PRAVASTATIN SODIUM 20 MG TAB PO SCH (21:00)
[2023-04-25] MEDS ORDERED: CLOPIDOGREL 75 MG TAB PO SCH (09:00)
[2023-04-25] MEDS ORDERED: ASPIRIN 81 MG PO SCH (09:00)
== END 2023-04-24 20:08 | disposition home or self-care (01) | DRG 247 ==
LOC: EC 09:38 → 6NMEDSUR 11:21 → OBSVTOIN 11:21 → 6NMEDSUR 11:41
PROVIDERS: ADMIT Family Medicine; ATTEND Family Medicine
PROC: B240ZZ3 Ultrasonography of Single Coronary Artery, Intravascular (ICD-10-PCS; principal; 2023-04-24 10:30)
PROC: 4A023N7 Measurement of Cardiac Sampling and Pressure, Left Heart, Percutaneous Approach (ICD-10-PCS; principal; 2023-04-24 10:30)
PROC: 027034Z Dilation of Coronary Artery, One Artery with Drug-eluting Intraluminal Device, Percutaneous Approach (ICD-10-PCS; principal; 2023-04-24 10:30)
PROC: B2111ZZ Fluoroscopy of Multiple Coronary Arteries using Low Osmolar Contrast (ICD-10-PCS; principal; 2023-04-24 10:30)
DX: I25.10 Atherosclerotic heart disease of native coronary artery without angina pectoris (principal); T82.855A Stenosis of coronary artery stent, initial encounter; I10 Essential (primary) hypertension; E78.2 Mixed hyperlipidemia; R79.1 Abnormal coagulation profile; I45.10 Unspecified right bundle-branch block; M54.2 Cervicalgia; E11.9 Type 2 diabetes mellitus without complications; Z91.410 Personal history of adult physical and sexual abuse; R53.83 Other fatigue; I83.90 Asymptomatic varicose veins of unspecified lower extremity; Z96.612 Presence of left artificial shoulder joint; Z82.49 Family history of ischemic heart disease and other diseases of the circulatory system; Z79.82 Long term (current) use of aspirin; Z79.899 Other long term (current) drug therapy; N19 Unspecified kidney failure; Z88.0 Allergy status to penicillin; Z88.8 Allergy status to other drugs, medicaments and biological substances
CPT/HCPCS: 36415; 71046; 80048; 80053; 80061; 83735; 83880; 84484; 85025; 85379; 85610; 85730; 92978; 93005; 93458; 94760; 99285

== ENCOUNTER → 2023-10-02 | Outpatient (CLI) | payer MEDICARE ==
[2023-10-02 17:02] LABS: ALT 19 U/L (8-44); AST 15 U/L (13-35); Chol/HDL Ratio 5.99 Ratio; LDL Cholesterol,Calculated 152.7 mg/dL (0.0-131.0)
== END | disposition home or self-care (01) ==
LOC: LABWHC1 08:23
PROVIDERS: ATTEND Internal Medicine Interventional Cardiology
DX: E78.2 Mixed hyperlipidemia (principal)
CPT/HCPCS: 36415; 80061; 84450; 84460